=== PATIENT | male | born 1950 | race Caucasian/White ===

== ENCOUNTER → 2017-01-26 | Outpatient (CLI) | payer MEDICARE, BC ==
--- NOTE | 2017-01-26 12:15 | CT ---
EXAMINATION TYPE: CT abdomen pelvis w con DATE OF EXAM: 01/26/2017 11:35 AM COMPARISON: NONE HISTORY: 66-year-old male with left lower Leg swelling and pain TECHNIQUE: Contiguous axial scanning of the abdomen and pelvis following administration of 100 ml Omn ipaque 300 IV contrast. Delayed images through the kidneys and coronal/sagittal reconstructions perf ormed. CT DLP: 4218.8 mGycm Automated exposure control for dose reduction was used. FINDINGS: Heart is upper limits of normal in size without pericardial effusion. Some mild patchy dependent atel ectasis is present at the lung bases without pleural effusion. There are artifacts in the upper abdomen relating to the patient's arm down. The liver is enlarged at 20.8 cm craniocaudal. It may be some underlying fatty infiltration but this is difficult to accurately determine on this phase of imaging. Gallbladder, adrenal glands, spleen, pancreas show no gross abnormality. Subcentimeter hypodensities within both kidneys are too small thorax. CT characterization and likely represent cysts. There is symmetric uptake and excretion of contrast by both kidneys. Portal venous system appears patent. No biliary ductal dilatation. No dilated small bowel, free fluid, or free air. No mesenteric or retroperitoneal lymphadenopathy. There is scattered mild stool burden without pericolonic inflammatory change. Redundant sigmoid colon noted. Bladder is urine distended. Prostate gland mildly enlarged at 4.3 cm wide. Phleboliths in the pelvis There is a nodular area anterior to the distal sigmoid showing central fat density measuring 1.7 cm, axial image 75. No pelvic lymphadenopathy. There is a moderate to large left hydrocele and small right hydrocele partially visualized. Bones: Mild degenerative changes at the hips. Facet arthropathy lower lumbar spine. Endplate spondylo sis thoracolumbar junction. No osseous destructive process. IMPRESSION: 1. HEPATOMEGALY. THERE MAY BE UNDERLYING FATTY INFILTRATION. CORRELATE WITH LFT's, LIPID PROFILE, AND PATIENT RISK FACTORS. 2. NODULAR 1.7 CM AREA ALONG THE ANTERIOR DISTAL SIGMOID SHOW CENTRAL FAT DENSITY AND COULD REPRESENT A FOCUS OF EPIPLOIC APPENDAGITIS. CLINICALLY CORRELATE. 3. MODERATE TO LARGE LEFT SIDED SCROTAL HYDROCELE AND SMALL RIGHT HYDROCELE.
== END | disposition home or self-care (01) ==
LOC: RADCTMAIN 09:14
PROVIDERS: ATTEND Internal Medicine
DX: R16.0 Hepatomegaly, not elsewhere classified (principal); N13.30 Unspecified hydronephrosis; I10 Essential (primary) hypertension; Z86.59 Personal history of other mental and behavioral disorders
CPT/HCPCS: 74177; Q9967

== ENCOUNTER 2018-01-10 20:20 | Inpatient (IN) | payer MEDICARE, BC, OTHER ==
[2018-01-10] MEDS ORDERED: SODIUM CHLORIDE 0.9% 1,000 ML IV ONE (21:12)
[2018-01-10] MEDS ORDERED: ONDANSETRON 4 MG/2 ML VIAL IVP STA (21:12)
[2018-01-10 21:31] LABS: Basophils % (A) 0 %; Eosinophils # (A) 0.1 k/uL (0-0.7); Eosinophils % (A) 1 %; HGB 10.4 gm/dL (13.0-17.5); Lymphocytes # (A) 0.3 k/uL (1.0-4.8); Lymphocytes % (A) 4 %; MCH 32.6 pg (25.0-35.0); MCHC 35.7 g/dL (31.0-37.0); MCV 91.2 fL (80.0-100.0); Monocytes # (A) 0.5 k/uL (0-1.0); Monocytes % (A) 6 %; Neutrophils # (A) 7.2 k/uL (1.3-7.7); Neutrophils % (A) 88 %; Platelet Count 195 k/uL (150-450); RBC 3.18 m/uL (4.30-5.90); RDW 15.1 % (11.5-15.5); WBC 8.3 k/uL (3.8-10.6)
[2018-01-10 21:36] LABS: Appearance,Urine Clear (Clear); Bilirubin,Urine Negative (Negative); Blood,Urine Negative (Negative); Color,Urine Light Yellow; Glucose,Urine (UA) Negative (Negative); Ketones,Urine Negative (Negative); Leukocyte Esterase,Urine Negative (Negative); Nitrite,Urine Negative (Negative); PH, Urine 6.5 (5.0-8.0); Protein,Urine Negative (Negative); Specific Gravity,Urine 1.005 (1.001-1.035); Urobilinogen,Urine <2.0 mg/dL (<2.0)
[2018-01-10 21:47] LABS: ALT 30 U/L (21-72); AST 20 U/L (17-59); Albumin 4.4 g/dL (3.5-5.0); Alkaline Phosphatase 80 U/L (38-126); Amylase 47 U/L (30-110); Anion Gap 14 mmol/L; Blood Urea Nitrogen 26 mg/dL (9-20); Calcium 9.8 mg/dL (8.4-10.2); Carbon Dioxide 32 mmol/L (22-30); Glucose 147 mg/dL (74-99); Lipase 72 U/L (23-300); Potassium 4.1 mmol/L (3.5-5.1); Total Bilirubin 0.3 mg/dL (0.2-1.3); Total Protein 6.7 g/dL (6.3-8.2)
[2018-01-10 21:50] LABS: Chloride 71 mmol/L (98-107); Sodium 117 mmol/L (137-145)
--- NOTE | 2018-01-10 21:53 | XR ---
EXAMINATION TYPE: XR KUB DATE OF EXAM: 01/10/2018 COMPARISON: NONE HISTORY: Abdominal pain TECHNIQUE: 3 views FINDINGS: There is no sign of intestinal obstruction or pneumoperitoneum. Fecal pattern is normal. Merry ng bases appear clear. There are no pathologic calcifications over the kidneys. IMPRESSION: Nonacute abdomen.
--- NOTE | 2018-01-10 22:08 | ED ---
Nausea/Vomiting/Diarrhea HPI - General Chief complaint: Nausea/Vomiting/Diarrhea Stated complaint: URI Time Seen by Provider: 01/10/18 20:59 Source: patient Mode of arrival: EMS Limitations: no limitations - History of Present Illness Initial comments: 67-year-old male patient presents to the emergency department today for complaints of vomiting and lower back pain. Patient states that his back began to bother him approximately 3 days ago. States that all his pain is across the entire lower back. Denies any recent falls or injuries. He states today he was very queasy, states he has vomited 3 times. Denies any hematemesis. States that after the vomiting he became dizzy. Patient states that he has been more weak than usual is unable to ambulate. He states that he currently resides at [facility] after having a CVA approximately a year ago. Patient denies any chest pain, shortness of breath, abdominal pain, constipation , or diarrhea. Patient denies any recent fever, chills, numbness, tingling, dizziness, weakness, hematuria, dysuria, urinary urgency, urinary frequency, headache, visual changes, or any other complaints. - Related Data Home Medications Medication Instructions Recorded Confirmed Benztropine Mesylate 1 mg PO DAILY 12/15/15 01/10/18 Cyanocobalamin [Vitamin B-12] 500 mcg PO HS 12/15/15 01/10/18 Levothyroxine Sodium [Synthroid] 25 mcg PO DAILY 12/15/15 01/10/18 Lisinopril [Zestril] 20 mg PO BID 12/15/15 01/10/18 Multivitamin [Men's Multi-Vitamin] 1 tab PO HS 12/15/15 01/10/18 [place]-3 Fatty Acids/Fish Oil [Fish 1 cap PO HS 12/15/15 01/10/18 Oil 1,000 mg Softgel] carBAMazepine [TEGretol XR] 400 mg PO Q12HR 12/15/15 01/10/18 Acetaminophen Tab [Tylenol Tab] 650 mg PO Q4H PRN 01/10/18 01/10/18 Aspirin [Children's Aspirin] 81 mg PO HS 01/10/18 01/10/18 Atorvastatin [Lipitor] 20 mg PO HS 01/10/18 01/10/18 Benztropine Mesylate [Cogentin] 2 mg PO HS 01/10/18 01/10/18 Cholecalciferol [Vitamin D3] 1,000 unit PO DAILY 01/10/18 01/10/18 Fluocinonide 0.05% [Lidex 0.05% 1 applic TOPICAL DAILY 01/10/18 01/10/18 cream] Fluticasone Propionate [Flonase 2 spray EA NOSTRIL BID PRN 01/10/18 01/10/18 Allergy Relief] Furosemide [Lasix] 40 mg PO BID 01/10/18 01/10/18 L.acidoph,Paracasei, B.lactis 1 cap PO DAILY 01/10/18 01/10/18 [Probiotic] Lactulose 20 gm PO DAILY 01/10/18 01/10/18 Loratadine 10 mg PO DAILY PRN 01/10/18 01/10/18 Magnesium Hydroxide [Milk of 2,400 mg PO Q72H PRN 01/10/18 01/10/18 Magnesia] Melatonin 3 mg PO HS 01/10/18 01/10/18 Meloxicam [Mobic] 7.5 mg PO DAILY 01/10/18 01/10/18 Menthol [Biofreeze] 1 applic TOPICAL Q8H PRN 01/10/18 01/10/18 Metolazone [Zaroxolyn] 2.5 mg PO Q48H 01/10/18 01/10/18 Metoprolol Succinate (ER) [Toprol 50 mg PO DAILY 01/10/18 01/10/18 Xl] Polyethylene Glycol 3350 [Miralax] 17 gm PO HS 01/10/18 01/10/18 Potassium Chloride 8 meq PO BID 01/10/18 01/10/18 guaiFENesin-DM 100-10MG/5ML 10 ml PO Q6H PRN 01/10/18 01/10/18 [Robitussin DM] metFORMIN HCL [Glucophage] 500 mg PO BID 01/10/18 01/10/18 risperiDONE 2 mg PO BID 01/10/18 01/10/18 Previous Rx's Medication Instructions Recorded LORazepam [Ativan] 0.5 mg PO DAILY PRN #10 tab 12/19/15 Allergies Allergy/AdvReac Type Severity Reaction Status Date / Time chlorpromazine HCl Allergy Unknown Verified 01/10/18 20:38 [From Thorazine] Review of Systems ROS Statement: Those systems with pertinent positive or pertinent negative responses have been documented in the HPI. ROS Other: All systems not noted in ROS Statement are negative. Past Medical History Past Medical History: Hyperlipidemia, Hypertension, Seizure Disorder, Thyroid Disorder Additional Past Medical History / Comment(s): Obesity History of Any Multi-Drug Resistant Organisms: None Reported Past Surgical History: Appendectomy Past Anesthesia/Blood Transfusion Reactions: No Reported Reaction Past Psychological History: Schizophrenia Smoking Status: Former smoker Past Alcohol Use History: None Reported Past Drug Use History: Marijuana - Past Family History Mother Family Medical History: No Reported History Father Family Medical History: No Reported History General Exam Limitations: no limitations General appearance: alert, in no apparent distress, other (This is a well- developed, well-nourished adult male patient in no acute distress. Vital signs upon presentation are temperature 98.3F, pulse 64, respirations 18, blood pressure 146/65, pulse ox 98% on room air.) Eye exam: Present: normal appearance, PERRL, EOMI. Absent: scleral icterus, conjunctival injection, periorbital swelling ENT exam: Present: normal exam, normal oropharynx, mucous membranes moist Neck exam: Present: normal inspection. Absent: tenderness, meningismus, lymphadenopathy Respiratory exam: Present: normal lung sounds bilaterally. Absent: respiratory distress, wheezes, rales, rhonchi, stridor Cardiovascular Exam: Present: regular rate, normal rhythm, normal heart sounds. Absent: systolic murmur, diastolic murmur, rubs, gallop, clicks GI/Abdominal exam: Present: soft, normal bowel sounds. Absent: distended, tenderness, guarding, rebound, rigid Neurological exam: Present: alert, oriented X3, CN II-XII intact, other (Speech is slow) Psychiatric exam: Present: normal affect, normal mood Skin exam: Present: warm, dry, intact, normal color, rash (Generalized rash) Course Vital Signs 01/10/18 01/10/18 01/10/18 20:31 21:29 22:10 Temperature 98.3 F Pulse Rate 64 59 L 52 L Respiratory 18 18 20 Rate Blood Pressure 146/65 145/72 125/73 O2 Sat by Pulse 98 97 97 Oximetry Medical Decision Making - Medical Decision Making 67-year-old male patient presents to the emergency department today for evaluation of vomiting and low back pain. Physical examination is unremarkable. Abdomen is soft and nontender. Lower back is not tender. Labs reviewed and did reveal hemoglobin of 10.4, sodium 117, chloride 71, carbon dioxide 32, BUN 26, creatinine 1.3, glucose 147, and osmolality of 251. Urinalysis was negative. We will admit patient for sodium replacement. Repeat sodiums q6h. - Lab Data Result diagrams: 01/10/18 20:50 01/10/18 20:50 Lab Results 01/10/18 01/10/18 01/10/18 Range/Units 20:50 20:50 20:50 WBC 8.3 (3.8-10.6) k/uL RBC 3.18 L (4.30-5.90) m/uL Hgb 10.4 L (13.0-17.5) gm/dL Hct 29.0 L (39.0-53.0) % MCV 91.2 (80.0-100.0) fL MCH 32.6 (25.0-35.0) pg MCHC 35.7 (31.0-37.0) g/dL RDW 15.1 (11.5-15.5) % Plt Count 195 (150-450) k/uL Neutrophils % 88 % Lymphocytes % 4 % Monocytes % 6 % Eosinophils % 1 % Basophils % 0 % Neutrophils # 7.2 (1.3-7.7) k/uL Lymphocytes # 0.3 L (1.0-4.8) k/uL Monocytes # 0.5 (0-1.0) k/uL Eosinophils # 0.1 (0-0.7) k/uL Basophils # 0.0 (0-0.2) k/uL Sodium 117 L* (137-145) mmol/L Potassium 4.1 (3.5-5.1) mmol/L Chloride 71 L* (98-107) mmol/L Carbon Dioxide 32 H (22-30) mmol/L Anion Gap 14 mmol/L BUN 26 H (9-20) mg/dL Creatinine 1.30 H (0.66-1.25) mg/dL Est GFR (MDRD) Af Amer >60 (>60 ml/min/1.73 sqM) Est GFR (MDRD) Non-Af 55 (>60 ml/min/1.73 sqM) Glucose 147 H (74-99) mg/dL Osmolality (280-301) mosm/kg Calcium 9.8 (8.4-10.2) mg/dL Total Bilirubin 0.3 (0.2-1.3) mg/dL AST 20 (17-59) U/L ALT 30 (21-72) U/L Alkaline Phosphatase 80 (38-126) U/L Total Protein 6.7 (6.3-8.2) g/dL Albumin 4.4 (3.5-5.0) g/dL Amylase 47 (30-110) U/L Lipase 72 (23-300) U/L Urine Color Light Yellow Urine Appearance Clear (Clear) Urine pH 6.5 (5.0-8.0) Ur Specific [place] 1.005 (1.001-1.035) Urine Protein Negative (Negative) Urine Glucose (UA) Negative (Negative) Urine Ketones Negative (Negative) Urine Blood Negative (Negative) Urine Nitrite Negative (Negative) Urine Bilirubin Negative (Negative) Urine Urobilinogen <2.0 (<2.0) mg/dL Ur Leukocyte Esterase Negative (Negative) 01/10/18 Range/Units 20:50 WBC (3.8-10.6) k/uL RBC (4.30-5.90) m/uL Hgb (13.0-17.5) gm/dL Hct (39.0-53.0) % MCV (80.0-100.0) fL MCH (25.0-35.0) pg MCHC (31.0-37.0) g/dL RDW (11.5-15.5) % Plt Count (150-450) k/uL Neutrophils % % Lymphocytes % % Monocytes % % Eosinophils % % Basophils % % Neutrophils # (1.3-7.7) k/uL Lymphocytes # (1.0-4.8) k/uL Monocytes # (0-1.0) k/uL Eosinophils # (0-0.7) k/uL Basophils # (0-0.2) k/uL Sodium (137-145) mmol/L Potassium (3.5-5.1) mmol/L Chloride (98-107) mmol/L Carbon Dioxide (22-30) mmol/L Anion Gap mmol/L BUN (9-20) mg/dL Creatinine (0.66-1.25) mg/dL Est GFR (MDRD) Af Amer (>60 ml/min/1.73 sqM) Est GFR (MDRD) Non-Af (>60 ml/min/1.73 sqM) Glucose (74-99) mg/dL Osmolality 251 L (280-301) mosm/kg Calcium (8.4-10.2) mg/dL Total Bilirubin (0.2-1.3) mg/dL AST (17-59) U/L ALT (21-72) U/L Alkaline Phosphatase (38-126) U/L Total Protein (6.3-8.2) g/dL Albumin (3.5-5.0) g/dL Amylase (30-110) U/L Lipase (23-300) U/L Urine Color Urine Appearance (Clear) Urine pH (5.0-8.0) Ur Specific [place] (1.001-1.035) Urine Protein (Negative) Urine Glucose (UA) (Negative) Urine Ketones (Negative) Urine Blood (Negative) Urine Nitrite (Negative) Urine Bilirubin (Negative) Urine Urobilinogen (<2.0) mg/dL Ur Leukocyte Esterase (Negative) - Radiology Data Radiology results: report reviewed, image reviewed 3 views of the abdomen shows no sign of intestinal obstruction or pneumoperitoneum. Fecal pattern is normal. Lung bases appear clear. There are no pathologic calcifications over the kidneys. Impression by Dr. Berry shows nonacute abdomen. Disposition Clinical Impression: Hyponatremia, Acute kidney injury, Vomiting Disposition: ADMITTED IP TO THIS [facility] Condition: Serious Decision to Admit Reason: Admit from EC Decision Date: 01/10/18 Decision Time: 22:27
[2018-01-10] MEDS ORDERED: NALOXONE 0.4 MG/ML 1 ML VIAL IV PRN (22:20)
[2018-01-10] MEDS ORDERED: ONDANSETRON 4 MG/2 ML VIAL IVP PRN (22:20)
[2018-01-11] MEDS: HYDROcodone/APAP 5-325MG 1 EACH TAB PO PRN ×2 (00:16→09:54)
[2018-01-11] MEDS: SODIUM CHLORIDE 0.9% 1,000 ML IV SCH ×5 (00:19→21:11)
[2018-01-11 00:34] VITALS: BMI 43.3
[2018-01-11 07:09] LABS: Glucose,Whole Blood 123 mg/dL (75-99)
[2018-01-11 09:06] LABS: Anion Gap 14 mmol/L; Blood Urea Nitrogen 24 mg/dL (9-20); Calcium 9.7 mg/dL (8.4-10.2); Carbon Dioxide 31 mmol/L (22-30); Glucose 120 mg/dL (74-99); Potassium 3.5 mmol/L (3.5-5.1); Sodium 124 mmol/L (137-145)
[2018-01-11 09:17] LABS: Chloride 79 mmol/L (98-107)
[2018-01-11 09:22] LABS: Basophils % (A) 0 %; Eosinophils # (A) 0.2 k/uL (0-0.7); Eosinophils % (A) 3 %; HCT 30.2 % (39.0-53.0); HGB 10.5 gm/dL (13.0-17.5); Hyperchromasia Slight; Lymphocytes # (A) 0.6 k/uL (1.0-4.8); Lymphocytes % (A) 10 %; MCH 31.2 pg (25.0-35.0); MCHC 34.6 g/dL (31.0-37.0); MCV 90.1 fL (80.0-100.0); Mean Platelet Volume 6.9; Monocytes # (A) 0.5 k/uL (0-1.0); Monocytes % (A) 8 %; Neutrophils # (A) 4.4 k/uL (1.3-7.7); Neutrophils % (A) 75 %; Platelet Count 226 k/uL (150-450); RBC 3.35 m/uL (4.30-5.90); RDW 15.5 % (11.5-15.5)
[2018-01-11] MEDS ORDERED: FLUTICASONE 50MCG/SPRAY NASAL 16GM EA NOSTRIL PRN (16:13)
[2018-01-11] MEDS: ATORVASTATIN 20 MG TAB PO SCH (21:11)
[2018-01-11] MEDS: CYANOCOBALAMIN 500 MCG TAB PO SCH (21:11)
[2018-01-11] MEDS: ASPIRIN 81 MG PO SCH (21:11)
[2018-01-11] MEDS: MELATONIN 3 MG TABLET PO SCH (21:11)
--- NOTE | 2018-01-11 23:48 | P.HPIM ---
History of Present Illness H&P Date: 01/11/18 Chief Complaint: Nausea vomiting and diarrhea Patient is a 67-year-old male with a known history of hypertension, hyperlipidemia, hypothyroidism, CVA with no residual weakness and schizophrenia came to ER with complaints of nausea vomiting and lower back pain. Patient states that his back began to bother him approximately 3 days ago. States that all his pain is across the entire lower back. Denies any recent falls or injuries. He states today he was very queasy, states he has vomited 3 times. Denies any hematemesis. States that after the vomiting he became dizzy. Patient states that he has been more weak than usual is unable to ambulate. He states that he currently resides at [facility] after having a CVA approximately a year ago. Patient denies any chest pain, shortness of breath, abdominal pain, constipation, or diarrhea. Patient denies any recent fever, chills, numbness, tingling, dizziness, weakness, hematuria, dysuria, urinary urgency, urinary frequency, headache, visual changes, or any other complaints. Patient was found to have hyponatremia with sodium level 117 and hypochloremia and serum osmolarity 251 Review of Systems Constitutional: Patient denies any fever or chills . No generalized weakness or weight loss. Abdomen: Nausea vomiting and abdominal pain and diarrhea Cardiovascular: Patient denies any chest pain or short of breath no palpitations. Respiratory: patient denied any cough is from production. No shortness of breath Neurologic: Patient did have dizziness. Patient denied any numbness or tingling headache. Musculoskeletal: Patient denies any complaints of joint swelling or deformity. Skin: Negative Psychiatric: Negative Endocrine: No heat or cold intolerance. No recent weight gain. Genitourinary: No dysuria or hematuria. All other 14 point ROS negative except the above Past Medical History Past Medical History: Hyperlipidemia, Hypertension, Seizure Disorder, Thyroid Disorder Additional Past Medical History / Comment(s): Obesity History of Any Multi-Drug Resistant Organisms: None Reported Past Surgical History: Appendectomy Past Anesthesia/Blood Transfusion Reactions: No Reported Reaction Past Psychological History: Schizophrenia Smoking Status: Former smoker Past Alcohol Use History: None Reported Past Drug Use History: Marijuana - Past Family History Mother Family Medical History: No Reported History Father Family Medical History: No Reported History Medications and Allergies Home Medications Medication Instructions Recorded Confirmed Type Benztropine Mesylate 1 mg PO DAILY 12/15/15 01/10/18 History Cyanocobalamin [Vitamin B-12] 500 mcg PO HS 12/15/15 01/10/18 History Levothyroxine Sodium [Synthroid] 25 mcg PO DAILY 12/15/15 01/10/18 History Lisinopril [Zestril] 20 mg PO BID 12/15/15 01/10/18 History Multivitamin [Men's Multi-Vitamin] 1 tab PO HS 12/15/15 01/10/18 History [place]-3 Fatty Acids/Fish Oil [Fish 1 cap PO HS 12/15/15 01/10/18 History Oil 1,000 mg Softgel] carBAMazepine [TEGretol XR] 400 mg PO Q12HR 12/15/15 01/10/18 History LORazepam [Ativan] 0.5 mg PO DAILY PRN #10 tab 12/19/15 01/10/18 Rx Acetaminophen Tab [Tylenol Tab] 650 mg PO Q4H PRN 01/10/18 01/10/18 History Aspirin [Children's Aspirin] 81 mg PO HS 01/10/18 01/10/18 History Atorvastatin [Lipitor] 20 mg PO HS 01/10/18 01/10/18 History Benztropine Mesylate [Cogentin] 2 mg PO HS 01/10/18 01/10/18 History Cholecalciferol [Vitamin D3] 1,000 unit PO DAILY 01/10/18 01/10/18 History Fluocinonide 0.05% [Lidex 0.05% 1 applic TOPICAL DAILY 01/10/18 01/10/18 History cream] Fluticasone Propionate [Flonase 2 spray EA NOSTRIL BID PRN 01/10/18 01/10/18 History Allergy Relief] Furosemide [Lasix] 40 mg PO BID 01/10/18 01/10/18 History L.acidoph,Paracasei, B.lactis 1 cap PO DAILY 01/10/18 01/10/18 History [Probiotic] Lactulose 20 gm PO DAILY 01/10/18 01/10/18 History Loratadine 10 mg PO DAILY PRN 01/10/18 01/10/18 History Magnesium Hydroxide [Milk of 2,400 mg PO Q72H PRN 01/10/18 01/10/18 History Magnesia] Melatonin 3 mg PO HS 01/10/18 01/10/18 History Meloxicam [Mobic] 7.5 mg PO DAILY 01/10/18 01/10/18 History Menthol [Biofreeze] 1 applic TOPICAL Q8H PRN 01/10/18 01/10/18 History Metolazone [Zaroxolyn] 2.5 mg PO Q48H 01/10/18 01/10/18 History Metoprolol Succinate (ER) [Toprol 50 mg PO DAILY 01/10/18 01/10/18 History Xl] Polyethylene Glycol 3350 [Miralax] 17 gm PO HS 01/10/18 01/10/18 History Potassium Chloride 8 meq PO BID 01/10/18 01/10/18 History guaiFENesin-DM 100-10MG/5ML 10 ml PO Q6H PRN 01/10/18 01/10/18 History [Robitussin DM] metFORMIN HCL [Glucophage] 500 mg PO BID 01/10/18 01/10/18 History risperiDONE 2 mg PO BID 01/10/18 01/10/18 History Allergies Allergy/AdvReac Type Severity Reaction Status Date / Time chlorpromazine HCl Allergy Unknown Verified 01/10/18 20:38 [From Thorazine] Physical Exam Vitals: Vital Signs Temp Pulse Pulse Pulse Resp BP BP 01/11/18 08:41 99.4 F 74 14 103/66 01/11/18 08:00 74 14 01/11/18 02:09 61 17 01/11/18 00:35 96.7 F L 61 17 127/71 01/10/18 22:10 52 L 20 125/73 01/10/18 21:29 59 L 18 145/72 01/10/18 20:31 98.3 F 64 18 146/65 Pulse Ox 01/11/18 08:41 93 L 01/11/18 08:00 01/11/18 02:09 01/11/18 00:35 98 01/10/18 22:10 97 01/10/18 21:29 97 01/10/18 20:31 98 Intake and Output 01/10/18 01/11/18 01/11/18 22:59 06:59 14:59 Intake Total 625 Output Total 1200 810 Balance -575 -810 Intake: Intake, IV Titration 625 Amount Sodium Chloride 0.9% 1, 625 000 ml @ 125 mls/hr IV . Q8H [facility] Rx#:[id number] Output: Urine 1200 810 Other: Voiding Method Urinal Urinal # Voids 1 Weight 79.832 kg 125.45 kg PHYSICAL EXAMINATION: Patient is lying in the bed comfortably, no acute distress, awake alert and oriented. Slightly lethargic. HEENT: Normocephalic. Neck is supple. Pupils reactive. Nostrils clear. Oral cavity is moist. Ears reveal no drainage. Neck reveals no JVD, carotid bruits, or thyromegaly. CHEST EXAMINATION: Trachea is central. Symmetrical expansion. Lung de dios clear to auscultation and percussion. CARDIAC: Normal S1, S2 with no gallops. No murmurs ABDOMEN: Soft. Bowel sounds normal. No organomegaly. No abdominal bruits. Extremities: reveal no edema. No clubbing or cyanosis Neurologically awake, alert, oriented x3 with well-coordinated movements. No focal deficits noted Skin: No rash or skin lesions. Psychiatric: Coperative. Nonsuicidal Musculoskeletal: No joint swelling or deformity. Normal range of motion. Results CBC & Chem 7: 01/11/18 08:24 01/11/18 20:10 Labs: Abnormal Lab Results - Last 24 Hours (Table) 01/10/18 01/10/18 01/10/18 Range/Units 20:50 20:50 20:50 RBC 3.18 L (4.30-5.90) m/uL Hgb 10.4 L (13.0-17.5) gm/dL Hct 29.0 L (39.0-53.0) % Lymphocytes # 0.3 L (1.0-4.8) k/uL Sodium 117 L* (137-145) mmol/L Chloride 71 L* (98-107) mmol/L Carbon Dioxide 32 H (22-30) mmol/L BUN 26 H (9-20) mg/dL Creatinine 1.30 H (0.66-1.25) mg/dL Glucose 147 H (74-99) mg/dL POC Glucose (mg/dL) (75-99) mg/dL Osmolality 251 L (280-301) mosm/kg 01/11/18 01/11/18 01/11/18 Range/Units 07:08 08:24 08:24 RBC 3.35 L (4.30-5.90) m/uL Hgb 10.5 L (13.0-17.5) gm/dL Hct 30.2 L (39.0-53.0) % Lymphocytes # 0.6 L (1.0-4.8) k/uL Sodium 124 L (137-145) mmol/L Chloride 79 L* (98-107) mmol/L Carbon Dioxide 31 H (22-30) mmol/L BUN 24 H (9-20) mg/dL Creatinine (0.66-1.25) mg/dL Glucose 120 H (74-99) mg/dL POC Glucose (mg/dL) 123 H (75-99) mg/dL Osmolality (280-301) mosm/kg Thrombosis Risk Factor Assmnt - DVT/VTE Prophylaxis DVT/VTE Prophylaxis: Pharmacologic Prophylaxis ordered - Choose All That Apply Each Factor Represents 1 point: Obesity (BMI >25), Swollen legs (current) Each Risk Factor Represents 2 Points: Age 61-74 years Thrombosis Risk Factor Assessment Total Risk Factor Score: 4 Thrombosis Risk Factor Assessment Level: Moderate Risk Assessment and Plan Assessment: Hypoosmolar hyponatremia likely due to hypovolemic Due to nausea vomiting and diarrhea along with diuretics Lasix Hypothyroidism Schizophrenia Morbid obesity BMI 43.3 Hyperlipidemia Hypertension Diabetes type II. [id number] Chronic pain Plan: Patient be continued on IV fluids with normal saline. Sodium improved from 117- -125 today. Patient is also taking antipsychotic medications. Suspected underlying SIADH as well. We will consult nephrology for evaluation. Further recommendations based on the clinical course. Time with Patient: Greater than 30
[2018-01-12] MEDS: SODIUM CHLORIDE 0.9% 1,000 ML IV SCH ×2 (02:48→12:28)
[2018-01-12] MEDS: LEVOTHYROXINE 25 MCG TAB PO SCH (06:20)
[2018-01-12 08:10] LABS: Basophils % (A) 0 %; Eosinophils # (A) 0.2 k/uL (0-0.7); Eosinophils % (A) 4 %; HCT 30.6 % (39.0-53.0); HGB 10.6 gm/dL (13.0-17.5); Lymphocytes # (A) 0.6 k/uL (1.0-4.8); Lymphocytes % (A) 12 %; MCH 31.8 pg (25.0-35.0); MCHC 34.7 g/dL (31.0-37.0); MCV 91.7 fL (80.0-100.0); Mean Platelet Volume 6.8; Monocytes # (A) 0.4 k/uL (0-1.0); Monocytes % (A) 8 %; Neutrophils # (A) 3.5 k/uL (1.3-7.7); Neutrophils % (A) 71 %; Platelet Count 208 k/uL (150-450); RBC 3.33 m/uL (4.30-5.90); RDW 15.1 % (11.5-15.5); WBC 4.9 k/uL (3.8-10.6)
[2018-01-12 08:41] LABS: Anion Gap 13 mmol/L; Blood Urea Nitrogen 17 mg/dL (9-20); Calcium 9.3 mg/dL (8.4-10.2); Carbon Dioxide 29 mmol/L (22-30); Chloride 88 mmol/L (98-107); Glucose 108 mg/dL (74-99); Potassium 3.8 mmol/L (3.5-5.1); Sodium 130 mmol/L (137-145)
[2018-01-12] MEDS: HYDROcodone/APAP 5-325MG 1 EACH TAB PO PRN (08:56)
[2018-01-12] MEDS: HEPARIN SODIUM,PORCINE 5,000 UNIT/ML 1 ML VIAL SQ SCH ×2 (09:08→21:36)
[2018-01-12] MEDS: BETAMETHASONE DIPROPIONATE 0.05% CREAM 15 GM TUBE TOPICAL SCH (09:10)
--- NOTE | 2018-01-12 09:44 | XR ---
EXAMINATION TYPE: XR chest 1V DATE OF EXAM: 01/12/2018 COMPARISON: Prior chest x-ray 12/15/2015 HISTORY: Shortness of breath TECHNIQUE: Single frontal view of the chest is obtained. FINDINGS: Patient is rotated. Heart size is accentuated by rotation. Hilar region may appear promine ntly due to technique. No airspace disease, pneumothorax, or pleural effusion. IMPRESSION: Rotated exam. Follow-up PA and lateral chest x-ray suggested. No acute abnormalities julia dent. Borderline enlarged cardiac size suspected.
--- NOTE | 2018-01-12 17:08 | CONS ---
CONSULTATION DATE OF CONSULTATION: 01/12/2018 REASON FOR CONSULTATION: Hyponatremia. HISTORY OF PRESENT ILLNESS: The patient is a 67-year-old male who was admitted to the hospital on 01/10/2018 with complaints of weakness, not feeling well. He also had nausea, vomiting and diarrhea prior to admission. He currently resides at [facility]. Patient's sodium was noted to be 117 mEq/L on initial admission. He has been maintained on normal saline at 100 mL/hour and serum sodium this morning was 130 mEq/L. The patient is complaining of increased lower extremity edema. He denies any further nausea, vomiting or diarrhea. Serum creatinine was 0.9 mg/dL. Initial creatinine was 1.3. PAST MEDICAL HISTORY: 1. Hypertension. 2. Hyperlipidemia. 3. Seizure disorder. 4. Hypothyroidism. 5. Obesity. 6. Schizophrenia. PAST SURGICAL HISTORY: Appendicectomy. SOCIAL HISTORY: The patient is a former smoker. No history of drug abuse or alcohol abuse. MEDICATIONS AT HOME PRIOR TO ADMISSION: 1. Vitamin B12. 2. Synthroid. 3. Zestril. 4. Tegretol. 5. Ativan. 6. Lipitor. 7. Aspirin. 8. Cogentin. 9. Flonase. 10.Lasix. 11.Lactulose. 12.Mobic. 13.Zaroxolyn. 14.Metformin. 15.Risperidone. 16.Potassium. 17.MiraLAX. ALLERGIES: THORAZINE. REVIEW OF SYSTEMS: As per HPI. Other systems negative. No complaints of any urinary symptoms or abdominal pain, chest pain, shortness of breath. No new medication started recently. PHYSICAL EXAMINATION: Patient is comfortable, awake, alert, oriented x3, not in any acute distress. Blood pressure is 110/60, heart rate 56 per minute. He is afebrile. EXAMINATION OF THE HEART: S1, S2. EXAMINATION OF LUNGS: Bilateral breath sounds are heard. ABDOMEN: Soft, obese, non-tender. Examination of lower extremities shows edema 1+ bilaterally. LABS: Sodium 130, potassium 3.8, chloride 88, BUN 17, serum creatinine 0.9, hemoglobin 10.6 g/dL. ASSESSMENT: 1. Acute kidney injury, prerenal, currently improved with creatinine down to 0.9 from 1.3 mg/dL. 2. Hyponatremia; appears to be hypovolemic and improved with normal saline. However, at this time I will discontinue the saline and repeat his serum sodium level this evening. I have advised him that we should keep him off of the saline for at least 24 hours and monitor his serum sodium level prior to discharge. Urine osmolarity and urine sodium will be ordered as well. Blood pressure is slightly on the lower side; therefore serum cortisol will be checked as well. 3. Hypertension; blood pressure currently on the lower side. Continue off of JAIDEN inhibitors. 4. Dyslipidemia, maintained on Lipitor. 5. Hypothyroidism. TSH was within range. PLAN: Discontinue normal saline. Check urine osmolality and urine sodium and repeat sodium this evening as well as in a.m. Thank you for this consultation. We will continue to follow the patient with you during his hospitalization. MMELSIEL / IJN: [id number] /
[2018-01-12] MEDS: ASPIRIN 81 MG PO SCH (21:36)
[2018-01-12] MEDS: ATORVASTATIN 20 MG TAB PO SCH (21:36)
[2018-01-12] MEDS: MELATONIN 3 MG TABLET PO SCH (21:36)
[2018-01-12] MEDS: CYANOCOBALAMIN 500 MCG TAB PO SCH (21:36)
[2018-01-13] MEDS: LEVOTHYROXINE 25 MCG TAB PO SCH (06:26)
[2018-01-13] MEDS: HEPARIN SODIUM,PORCINE 5,000 UNIT/ML 1 ML VIAL SQ SCH ×2 (09:28→20:33)
[2018-01-13] MEDS: BETAMETHASONE DIPROPIONATE 0.05% CREAM 15 GM TUBE TOPICAL SCH (09:30)
[2018-01-13] MEDS ORDERED: LISINOPRIL 10 MG TAB PO SCH (14:30)
[2018-01-13 14:59] LABS: Anion Gap 12 mmol/L; Blood Urea Nitrogen 10 mg/dL (9-20); Calcium 9.5 mg/dL (8.4-10.2); Carbon Dioxide 29 mmol/L (22-30); Chloride 90 mmol/L (98-107); Glucose 119 mg/dL (74-99); Potassium 4.2 mmol/L (3.5-5.1); Sodium 131 mmol/L (137-145)
--- NOTE | 2018-01-13 15:09 | PN ---
PROGRESS NOTE Patient is seen for followup for hyponatremia. Sodium has improved, which is at 132, Patient wants to go home. PHYSICAL EXAMINATION: Blood pressure is 158/62, heart rate 61 per minute. Patient is afebrile. Examination of the heart, S1, S2. Examination of the lungs, bilateral breath sounds are heard. Abdomen is soft, nontender. Examination of the lower extremities shows edema 1+ bilaterally. LABS: Show sodium 132 today. Serum creatinine was 0.94 yesterday. ASSESSMENT: 1. Hypovolemic, hyponatremia initially, currently improved. The patient also has lower extremity edema and therefore he is maintained off of normal saline now. He may need low-dose loop diuretics as outpatient depending on his serum sodium level. This will need to be monitored as outpatient. 2. Acute kidney injury with serum creatinine improving from 1.3 to 0.9 mg/dL, mainly prerenal. 3. Hypertension. Blood pressure remains on the low side. Continue off of JAIDEN inhibitors. 4. Hypothyroidism, maintained on supplementation. 5. Dyslipidemia, currently on Lipitor. PLAN: Continue off of normal saline to maintain some degree of free water restriction, maintained good oral protein intake and monitor electrolytes as outpatient. Patient is stable for discharge from a nephrology standpoint, we should avoid thiazide diuretics and if blood pressure is elevated as outpatient, patient can resume the JAIDEN inhibitors. CROWL / TERESAN: [id number] /
[2018-01-13] MEDS: LISINOPRIL 10 MG TAB PO SCH (20:33)
[2018-01-13] MEDS: ATORVASTATIN 20 MG TAB PO SCH (20:33)
[2018-01-13] MEDS: MELATONIN 3 MG TABLET PO SCH (20:34)
[2018-01-13] MEDS: CYANOCOBALAMIN 500 MCG TAB PO SCH (20:34)
[2018-01-13] MEDS: ASPIRIN 81 MG PO SCH (20:34)
[2018-01-14] MEDS: LEVOTHYROXINE 25 MCG TAB PO SCH (06:11)
[2018-01-14] MEDS: HEPARIN SODIUM,PORCINE 5,000 UNIT/ML 1 ML VIAL SQ SCH ×2 (09:30→21:46)
[2018-01-14] MEDS: LISINOPRIL 10 MG TAB PO SCH (09:31)
[2018-01-14] MEDS: BETAMETHASONE DIPROPIONATE 0.05% CREAM 15 GM TUBE TOPICAL SCH (09:31)
[2018-01-14] MEDS ORDERED: LORazepam 0.5 MG TAB PO PRN (10:50)
[2018-01-14] MEDS: BENZTROPINE MESYLATE 1 MG TAB PO SCH ×2 (12:11→21:46)
[2018-01-14] MEDS: carBAMazepine 400 MG TAB.ER.12H PO SCH ×2 (12:11→21:46)
[2018-01-14] MEDS: risperiDONE 2 MG TAB PO SCH ×2 (12:11→21:46)
[2018-01-14] MEDS: LACTULOSE 20 GM/30 ML CUP PO SCH (12:13)
--- NOTE | 2018-01-14 15:55 | PN ---
PROGRESS NOTE The patient is seen for followup for hyponatremia, which was hypovolemic initially, currently improved. Patient this morning is confused. He has significant lower extremity edema for which I will start him on oral diuretics. There is no ongoing fever or chills. Blood pressure is 132/81, heart rate is 72 per minute. He is afebrile. Examination of the heart S1, S2. Examination lungs bilateral breath sounds are heard. Abdomen is soft, distended, obese. Examination of the lower extremity shows edema 2+ bilaterally. LABS: Reveals sodium 131 today, potassium 4.2, BUN 10, serum creatinine 0.8 mg/dL. Urine osmolality 245. Urine sodium of 37. ASSESSMENT: 1. Hyponatremia, hypovolemic initially and responded well to IV fluids. Currently patient is off of saline. His sodium is staying about 130-131 mEq/L. He does have significant lower extremity edema. I will start him on low-dose loop diuretics. 2. Acute kidney injury prerenal currently improved. 3. Hypertension. JAIDEN inhibitors were decreased as blood pressure had been on the lower side. 4. Hypothyroidism. 5. Dyslipidemia. 6. Encephalopathy with altered mental status, possibly related to medications. The patient is on multiple psych medications. PLAN: Add Lasix 40 mg p.o. daily. Repeat labs in a.m. MMODL / IJN: [id number] /
[2018-01-14] MEDS: FUROSEMIDE 40 MG TAB PO SCH (16:05)
[2018-01-14] MEDS: ATORVASTATIN 20 MG TAB PO SCH (21:45)
[2018-01-14] MEDS: MELATONIN 3 MG TABLET PO SCH (21:45)
[2018-01-14] MEDS: ASPIRIN 81 MG PO SCH (21:45)
[2018-01-14] MEDS: CYANOCOBALAMIN 500 MCG TAB PO SCH (21:45)
[2018-01-14] MEDS: LISINOPRIL 20 MG TAB PO SCH (21:46)
--- NOTE | 2018-01-15 00:18 | P.PN ---
Subjective Progress Note Date: 01/12/18 Principal diagnosis: Hyponatremia and altered mental status Patient is a 67-year-old male with a known history of hypertension, hyperlipidemia, hypothyroidism, CVA with no residual weakness and schizophrenia came to ER with complaints of nausea vomiting and lower back pain. Patient states that his back began to bother him approximately 3 days ago. States that all his pain is across the entire lower back. Denies any recent falls or injuries. He states today he was very queasy, states he has vomited 3 times. Denies any hematemesis. States that after the vomiting he became dizzy. Patient states that he has been more weak than usual is unable to ambulate. He states that he currently resides at [facility] after having a CVA approximately a year ago. Patient denies any chest pain, shortness of breath, abdominal pain, constipation, or diarrhea. Patient denies any recent fever, chills, numbness, tingling, dizziness, weakness, hematuria, dysuria, urinary urgency, urinary frequency, headache, visual changes, or any other complaints. Patient was found to have hyponatremia with sodium level 117 and hypochloremia and serum osmolarity 251 01/12/2018 Patient's sodium level improved to 130 today. Patient was seen by nephrology and recommended to hold IV fluids to evaluate for SIADH. Otherwise patient is awake oriented and clinically improved. No fever no chills no acute overnight issues. All other review of systems negative except the above Current medications reviewed Objective - Vital Signs Vital signs: Vital Signs Temp 97.7 F 01/12/18 15:00 Pulse 60 01/12/18 15:00 Resp 16 01/12/18 15:00 BP 137/75 01/12/18 15:00 Pulse Ox 95 01/12/18 15:00 Intake & Output 01/12/18 01/12/18 01/13/18 06:59 18:59 06:59 Intake Total 900 800 Output Total 1400 500 Balance -500 300 Intake: IV 900 800 Sodium Chloride 0.9% 1, 900 800 000 ml @ 100 mls/hr IV . Q10H NISHI Rx#:[id number] Output: Urine 1400 500 Other: Voiding Method Urinal Bedside Commode Urinal # Voids 400 # Bowel Movements 1 - Exam PHYSICAL EXAMINATION: Patient is lying in the bed comfortably, no acute distress, awake alert and oriented. Sometimes patient talks to himself.. HEENT: Normocephalic. Neck is supple. Pupils reactive. Nostrils clear. Oral cavity is moist. Ears reveal no drainage. Neck reveals no JVD, carotid bruits, or thyromegaly. CHEST EXAMINATION: Trachea is central. Symmetrical expansion. Lung de dios clear to auscultation and percussion. CARDIAC: Normal S1, S2 with no gallops. No murmurs ABDOMEN: Soft. Bowel sounds normal. No organomegaly. No abdominal bruits. Extremities: reveal no edema. No clubbing or cyanosis Neurologically awake, alert, oriented x3 with well-coordinated movements. No focal deficits noted Skin: No rash or skin lesions. Psychiatric: Coperative. Nonsuicidal Musculoskeletal: No joint swelling or deformity. Normal range of motion. - Labs CBC & Chem 7: 01/12/18 07:29 01/13/18 14:23 Labs: Abnormal Lab Results - Last 24 Hours (Table) 01/11/18 01/12/18 01/12/18 Range/Units 23:06 07:29 07:29 RBC 3.33 L (4.30-5.90) m/uL Hgb 10.6 L (13.0-17.5) gm/dL Hct 30.6 L (39.0-53.0) % Lymphocytes # 0.6 L (1.0-4.8) k/uL Sodium 125 L 130 L (137-145) mmol/L Chloride 88 L (98-107) mmol/L Glucose 108 H (74-99) mg/dL 01/12/18 Range/Units 18:45 RBC (4.30-5.90) m/uL Hgb (13.0-17.5) gm/dL Hct (39.0-53.0) % Lymphocytes # (1.0-4.8) k/uL Sodium 132 L (137-145) mmol/L Chloride (98-107) mmol/L Glucose (74-99) mg/dL Assessment and Plan Assessment: Hypoosmolar hyponatremia likely due to hypovolemic Due to nausea vomiting and diarrhea along with diuretics Lasix Hypothyroidism Schizophrenia Morbid obesity BMI 43.3 Hyperlipidemia Hypertension Diabetes type II. [id number] Chronic pain Plan: Patient be continued on IV fluids with normal saline. Sodium improved from 117- -125 --130 today. Patient is also taking antipsychotic medications. Suspected underlying SIADH as well. We will consult nephrology for evaluation. Further recommendations based on the clinical course.
--- NOTE | 2018-01-15 00:22 | P.PN ---
Subjective Progress Note Date: 01/13/18 Principal diagnosis: Hyponatremia and altered mental status Patient is a 67-year-old male with a known history of hypertension, hyperlipidemia, hypothyroidism, CVA with no residual weakness and schizophrenia came to ER with complaints of nausea vomiting and lower back pain. Patient states that his back began to bother him approximately 3 days ago. States that all his pain is across the entire lower back. Denies any recent falls or injuries. He states today he was very queasy, states he has vomited 3 times. Denies any hematemesis. States that after the vomiting he became dizzy. Patient states that he has been more weak than usual is unable to ambulate. He states that he currently resides at [facility] after having a CVA approximately a year ago. Patient denies any chest pain, shortness of breath, abdominal pain, constipation, or diarrhea. Patient denies any recent fever, chills, numbness, tingling, dizziness, weakness, hematuria, dysuria, urinary urgency, urinary frequency, headache, visual changes, or any other complaints. Patient was found to have hyponatremia with sodium level 117 and hypochloremia and serum osmolarity 251 01/12/2018 Patient's sodium level improved to 130 today. Patient was seen by nephrology and recommended to hold IV fluids to evaluate for SIADH. Otherwise patient is awake oriented and clinically improved. No fever no chills no acute overnight issues. 01/13/2018 Sodium level improved to 132 today. Patient continues to be off IV fluids. Recommended good protein diet as outpatient and follow-up as an outpatient as per nephrology recommendations. He anticipate discharged tomorrow with more clinical improvement All other review of systems negative except the above Current medications reviewed Objective - Vital Signs Vital signs: Vital Signs Temp 98.2 F 01/13/18 15:00 Pulse 59 L 01/13/18 15:00 Resp 18 01/13/18 15:00 BP 157/70 01/13/18 15:00 Pulse Ox 97 01/13/18 15:00 Intake & Output 01/12/18 01/13/18 01/13/18 18:59 06:59 18:59 Intake Total 800 750 Output Total 500 1100 Balance 300 -350 Intake: IV 800 Sodium Chloride 0.9% 1, 800 000 ml @ 100 mls/hr IV . Q10H [facility] Rx#:[id number] Oral 750 Output: Urine 500 1100 Other: Voiding Method Bedside Commode Bedside Commode Urinal Urinal # Voids 1 # Bowel Movements 1 - Exam PHYSICAL EXAMINATION: Patient is lying in the bed comfortably, no acute distress, awake alert and oriented. Sometimes patient talks to himself.. HEENT: Normocephalic. Neck is supple. Pupils reactive. Nostrils clear. Oral cavity is moist. Ears reveal no drainage. Neck reveals no JVD, carotid bruits, or thyromegaly. CHEST EXAMINATION: Trachea is central. Symmetrical expansion. Lung de dios clear to auscultation and percussion. CARDIAC: Normal S1, S2 with no gallops. No murmurs ABDOMEN: Soft. Bowel sounds normal. No organomegaly. No abdominal bruits. Extremities: reveal no edema. No clubbing or cyanosis Neurologically awake, alert, oriented x3 with well-coordinated movements. No focal deficits noted Skin: No rash or skin lesions. Psychiatric: Coperative. Nonsuicidal Musculoskeletal: No joint swelling or deformity. Normal range of motion. - Labs CBC & Chem 7: 01/12/18 07:29 01/13/18 14:23 Labs: Abnormal Lab Results - Last 24 Hours (Table) 01/12/18 01/13/18 Range/Units 18:45 14:23 Sodium 132 L 131 L (137-145) mmol/L Chloride 90 L (98-107) mmol/L Glucose 119 H (74-99) mg/dL Assessment and Plan Assessment: Hypoosmolar hyponatremia likely due to hypovolemic Due to nausea vomiting and diarrhea along with diuretics Lasix Hypothyroidism Schizophrenia Morbid obesity BMI 43.3 Hyperlipidemia Hypertension Diabetes type II. [id number] Chronic pain Plan: Patient is off IV fluids. Sodium improved from 117--125 --130--132 today. Patient is also taking antipsychotic medications. Appreciate nephrology recommendations. Recommended to follow-up as an outpatient at this time. Further recommendations based on the clinical course.
--- NOTE | 2018-01-15 00:26 | P.PN ---
Subjective Progress Note Date: 01/14/18 Principal diagnosis: Hyponatremia and altered mental status Patient is a 67-year-old male with a known history of hypertension, hyperlipidemia, hypothyroidism, CVA with no residual weakness and schizophrenia came to ER with complaints of nausea vomiting and lower back pain. Patient states that his back began to bother him approximately 3 days ago. States that all his pain is across the entire lower back. Denies any recent falls or injuries. He states today he was very queasy, states he has vomited 3 times. Denies any hematemesis. States that after the vomiting he became dizzy. Patient states that he has been more weak than usual is unable to ambulate. He states that he currently resides at [facility] after having a CVA approximately a year ago. Patient denies any chest pain, shortness of breath, abdominal pain, constipation, or diarrhea. Patient denies any recent fever, chills, numbness, tingling, dizziness, weakness, hematuria, dysuria, urinary urgency, urinary frequency, headache, visual changes, or any other complaints. Patient was found to have hyponatremia with sodium level 117 and hypochloremia and serum osmolarity 251 01/12/2018 Patient's sodium level improved to 130 today. Patient was seen by nephrology and recommended to hold IV fluids to evaluate for SIADH. Otherwise patient is awake oriented and clinically improved. No fever no chills no acute overnight issues. 01/13/2018 Sodium level improved to 132 today. Patient continues to be off IV fluids. Recommended good protein diet as outpatient and follow-up as an outpatient as per nephrology recommendations. He anticipate discharged tomorrow with more clinical improvement. 01/14/2018 Patient is confused and hallucinating today. Patient is also having worsening lower action to swelling. Lasix was restarted. Patient will be restarted on his psychiatric medications as well. Otherwise no fever no chills. We will repeat CBC and BMP tomorrow. Nephrology is on board. Complete review of systems could not be obtained from the patient Current medications reviewed Objective - Vital Signs Vital signs: Vital Signs Temp 97.7 F 01/14/18 15:00 Pulse 73 01/14/18 16:00 Resp 16 01/14/18 16:00 BP 144/85 01/14/18 15:00 Pulse Ox 97 01/14/18 15:00 Intake & Output 01/14/18 01/14/18 01/15/18 06:59 18:59 06:59 Intake Total 800 Output Total 150 Balance -150 800 Intake: Oral 800 Output: Urine 150 Other: Voiding Method Bedside Commode Bedside Commode Urinal Urinal # Voids 1 - Exam PHYSICAL EXAMINATION: Patient is lying in the bed comfortably, no acute distress, awake alert and oriented. Sometimes patient talks to himself.. HEENT: Normocephalic. Neck is supple. Pupils reactive. Nostrils clear. Oral cavity is moist. Ears reveal no drainage. Neck reveals no JVD, carotid bruits, or thyromegaly. CHEST EXAMINATION: Trachea is central. Symmetrical expansion. Lung de dios clear to auscultation and percussion. CARDIAC: Normal S1, S2 with no gallops. No murmurs ABDOMEN: Soft. Bowel sounds normal. No organomegaly. No abdominal bruits. Extremities: reveal no edema. No clubbing or cyanosis Neurologically awake, alert, oriented x3 with well-coordinated movements. No focal deficits noted Skin: No rash or skin lesions. Psychiatric: Coperative. Nonsuicidal Musculoskeletal: No joint swelling or deformity. Normal range of motion. - Labs CBC & Chem 7: 01/12/18 07:29 01/13/18 14:23 Assessment and Plan Assessment: Hypoosmolar hyponatremia likely due to hypovolemic Due to nausea vomiting and diarrhea along with diuretics Lasix Hallucinations Hypothyroidism Schizophrenia Morbid obesity BMI 43.3 Hyperlipidemia Hypertension Diabetes type II. [id number] Chronic pain Lower extremity swelling. Bilateral. Likely due to dependent edema. No history of CHF. Restarted Lasix Plan: Patient is off IV fluids. Sodium improved from 117--125 --130--132. Patient has been restarted on antipsychotic medications. Appreciate nephrology recommendations. Recommended to follow-up as an outpatient at this time. Further recommendations based on the clinical course. Time with Patient: Greater than 30
[2018-01-15 04:28] LABS: Glucose,Whole Blood 133 mg/dL (75-99)
--- NOTE | 2018-01-15 04:55 | CT ---
EXAM: CT Head Without Intravenous Contrast CLINICAL HISTORY: ITS.REASON CT Reason: Stroke TECHNIQUE: Axial computed tomography images of the head/brain without intravenous contrast. CTDI is 57.4 mGy and DLP is 1184.9 mGy-cm. This CT exam was performed using one or more of the following dose reduction techniques: automated exposure control, adjustment of the mA and/or kV according to patient size, and/or use of iterative reconstruction technique. COMPARISON: CT head dated 12/16/2015. FINDINGS: Brain: Unchanged small chronic lacunar infarcts in the deep weller nuclei as well as mild patchy foci of low attenuation in the supratentorial white matter most compatible with small vessel ischemic disease. No evidence of acute intracranial hemorrhage. No mass effect or herniation. Ventricles: Unremarkable. No ventriculomegaly. Bones/joints: No acute fracture. Soft tissues: Unremarkable. Sinuses: Unremarkable as visualized. Mastoid air cells: Unremarkable as visualized. Other findings: Unchanged mild global volume loss. IMPRESSION: No evidence of acute intracranial hemorrhage. Unchanged mild presumed small vessel ischemic disease and multiple small chronic appearing lacunar infarcts.
--- NOTE | 2018-01-15 05:17 | CT ---
EXAM: CT Angiography Head With Intravenous Contrast CLINICAL HISTORY: ITS.REASON CT Reason: CODE STROKE TECHNIQUE: Axial computed tomographic angiography images of the head with intravenous contrast using CT angiography protocol. DLP is 1021.2 mGy-cm total for head and neck. This CT exam was performed using one or more of the following dose reduction techniques: automated exposure control, adjustment of the mA and/or kV according to patient size, and/or use of iterative reconstruction technique. MIP reconstructed images were created and reviewed. COMPARISON: None available. FINDINGS: Limitations: Markedly limited exam secondary to poor bolus timing. Right internal carotid artery: No acute findings. No occlusion or significant stenosis. No aneurysm. Right anterior cerebral artery: Grossly unremarkable. No proximal occlusion or significant stenosis. No large proximal aneurysm. Right middle cerebral artery: Gross unremarkable. No proximal occlusion or significant stenosis. No large proximal aneurysm. Right posterior cerebral artery: Grossly unremarkable. No proximal occlusion or significant stenosis. No large proximal aneurysm. Right vertebral artery: Unremarkable as visualized. Left internal carotid artery: No acute findings. Intracranial segment is patent with no significant stenosis. No aneurysm. Left anterior cerebral artery: Grossly unremarkable. No occlusion or significant stenosis. No large proximal aneurysm. Left middle cerebral artery: Gross unremarkable. No occlusion or significant stenosis. No large proximal aneurysm. Left posterior cerebral artery: Gross unremarkable. No occlusion or significant stenosis. No large proximal aneurysm. Left vertebral artery: Unremarkable as visualized. Basilar artery: Unremarkable. No occlusion or significant stenosis. No aneurysm. IMPRESSION: Markedly limited exam without proximal significant steno-occlusive lesion. EXAM: CT Angiography Neck With Intravenous Contrast CLINICAL HISTORY: ITS.REASON CT Reason: CODE STROKE TECHNIQUE: Axial computed tomographic angiography images of the neck with intravenous contrast using CT angiography protocol. DLP is 1021.2 mGy-cm total for head and neck. This CT exam was performed using one or more of the following dose reduction techniques: automated exposure control, adjustment of the mA and/or kV according to patient size, and/or use of iterative reconstruction technique. MIP reconstructed images were created and reviewed. COMPARISON: None available. FINDINGS: Limitations: Markedly limited exam secondary to poor bolus timing. Within the above limitations, no evidence of significant steno-occlusive lesion. VASCULATURE: Right common carotid artery: Grossly unremarkable. No significant stenosis. No occlusion. Right internal carotid artery: Gross unremarkable. Extracranial segment is patent with no significant stenosis. No occlusion. Right external carotid artery: Gross unremarkable. No occlusion. Right vertebral artery: The right vertebral artery in particular is not well assessed. Left common carotid artery: Grossly unremarkable. No significant stenosis. No occlusion. Left internal carotid artery: Grossly unremarkable. Extracranial segment is patent with no significant stenosis. No occlusion. Left external carotid artery: Gross unremarkable. No occlusion. Left vertebral artery: Grossly unremarkable. No significant stenosis. No occlusion. NECK: Bones/joints: No acute fracture. No dislocation. Soft tissues: Unremarkable as visualized. No mass. CAROTID STENOSIS REFERENCE USING NASCET CRITERIA: % ICA stenosis = (1 - narrowest ICA diameter/diameter of distal cervical ICA) x 100. Mild - <50% stenosis. Moderate - 50-69% stenosis. Severe - 70-94% stenosis. Near occlusion - 95-99% stenosis. Occluded - 100% stenosis. IMPRESSION: Markedly limited exam without significant steno-occlusive lesion. The right vertebral artery is not well characterized however.
[2018-01-15 05:37] LABS: Basophils % (A) 1 %; Eosinophils # (A) 0.3 k/uL (0-0.7); Eosinophils % (A) 5 %; HCT 30.1 % (39.0-53.0); HGB 10.2 gm/dL (13.0-17.5); Lymphocytes # (A) 0.6 k/uL (1.0-4.8); Lymphocytes % (A) 11 %; MCH 31.5 pg (25.0-35.0); MCHC 33.8 g/dL (31.0-37.0); MCV 93.2 fL (80.0-100.0); Mean Platelet Volume 7.7; Monocytes # (A) 0.5 k/uL (0-1.0); Monocytes % (A) 9 %; Neutrophils # (A) 3.7 k/uL (1.3-7.7); Neutrophils % (A) 71 %; Platelet Count 188 k/uL (150-450); RBC 3.23 m/uL (4.30-5.90); RDW 15.3 % (11.5-15.5); WBC 5.2 k/uL (3.8-10.6)
[2018-01-15 05:43] LABS: INR 1.1 (<1.2); Partial Thromboplastin Time 25.3 sec (22.0-30.0); Prothrombin Time 10.7 sec (9.0-12.0)
[2018-01-15 05:44] LABS: ALT 38 U/L (21-72); AST 25 U/L (17-59); Alkaline Phosphatase 70 U/L (38-126); Anion Gap 12 mmol/L; Blood Urea Nitrogen 12 mg/dL (9-20); Calcium 9.5 mg/dL (8.4-10.2); Carbon Dioxide 30 mmol/L (22-30); Chloride 93 mmol/L (98-107); Glucose 127 mg/dL (74-99); Potassium 3.7 mmol/L (3.5-5.1); Sodium 135 mmol/L (137-145); Total Bilirubin 0.5 mg/dL (0.2-1.3); Total Protein 6.4 g/dL (6.3-8.2)
[2018-01-15] MEDS: LEVOTHYROXINE 25 MCG TAB PO SCH (06:26)
[2018-01-15] MEDS: BENZTROPINE MESYLATE 1 MG TAB PO SCH ×2 (09:58→22:51)
[2018-01-15] MEDS: LISINOPRIL 20 MG TAB PO SCH ×2 (09:58→22:52)
[2018-01-15] MEDS: FUROSEMIDE 40 MG TAB PO SCH (09:58)
[2018-01-15] MEDS: carBAMazepine 400 MG TAB.ER.12H PO SCH ×2 (09:58→22:51)
[2018-01-15] MEDS: LACTULOSE 20 GM/30 ML CUP PO SCH (09:59)
[2018-01-15] MEDS: HEPARIN SODIUM,PORCINE 5,000 UNIT/ML 1 ML VIAL SQ SCH ×2 (09:59→22:52)
[2018-01-15] MEDS: BETAMETHASONE DIPROPIONATE 0.05% CREAM 15 GM TUBE TOPICAL SCH (09:59)
[2018-01-15] MEDS: METOPROLOL SUCCINATE (ER) 50 MG TAB.ER.24H PO SCH (09:59)
[2018-01-15] MEDS: risperiDONE 2 MG TAB PO SCH ×2 (10:00→22:51)
--- NOTE | 2018-01-15 16:57 | MR ---
EXAMINATION TYPE: MR brain wo/w con DATE OF EXAM: 01/15/2018 COMPARISON: CT 01/15/2018 HISTORY: 67-year-old male rule out stroke, aphasia TECHNIQUE: Multiplanar, multisequence images of the brain and brainstem were acquired before and aft er administration of 12.5 mL IV Gadavist. Diffusion weighted imaging is performed. FINDINGS: Some motion limitations. No evidence for acute infarction, hemorrhage, mass, mass effect, midline shift, herniation, effacemen t of basal cisterns, or extra-axial fluid collection. There is moderate generalized supratentorial volume loss. Secondary mild prominence to the ventricula r system. Prominent perivascular spaces or lacunar infarcts right basal ganglia. The left vertebral artery is dominant. Otherwise, the major intracranial flow voids are intact. Changes of the FLAIR weighted sequences show mild patchy periventricular white matter bright signal c hange likely relating to chronic small vessel ischemic disease. Midline structures demonstrate normal morphology. The craniocervical junction is normal. Post contrast images demonstrate no evidence of pathologic enhancement. Dural venous sinuses are pat ent. The visualized sinuses are clear and the globes are intact. IMPRESSION: There is moderate cerebral atrophy. Either old lacunar infarct or prominent perivascular spaces espec ially in the right basal ganglia. No acute intracranial abnormality seen.
--- NOTE | 2018-01-15 17:09 | P.CONS ---
History of Present Illness - Reason for Consult Consult date: 01/15/18 Rule out stroke - Chief Complaint Altered mental status - History of Present Illness Is 67-year-old male with a known history of hypertension, hyperlipidemia, hypothyroidism, schizophrenia and stroke. He presented to the emergency department on January 10 complaining of vomiting nausea and low back pain for about 3 days. He was also feeling generally weak and was unable to ambulate because of this. She had a stroke about a year ago leaving him with left-sided weakness. He was being followed for hyponatremia and hypochloremia. His levels have been improving. His psychiatric medications were restarted. Sometime yesterday he started to be more confused and hallucinating. Sometime during the day today he started unintelligible speech with constant rambling. He is not responding very well to commands. CT of the brain was done and showed no evidence of acute intracranial abnormalities. It did show on changed mild small vessel ischemic disease and multiple small chronic-appearing lacunar infarcts. CTA of the head and neck were done. The report says it was markedly limited but without signs of significant occlusive lesions. An MRI has been performed and we are waiting results of that. Review of Systems All systems: negative Constitutional: Reports as per HPI Past Medical History Past Medical History: Hyperlipidemia, Hypertension, Seizure Disorder, Thyroid Disorder Additional Past Medical History / Comment(s): Obesity History of Any Multi-Drug Resistant Organisms: None Reported Past Surgical History: Appendectomy Past Anesthesia/Blood Transfusion Reactions: No Reported Reaction Past Psychological History: Schizophrenia Smoking Status: Former smoker Past Alcohol Use History: None Reported Past Drug Use History: Marijuana - Past Family History Mother Family Medical History: No Reported History Father Family Medical History: No Reported History Medications and Allergies Home Medications Medication Instructions Recorded Confirmed Type Benztropine Mesylate 1 mg PO DAILY 12/15/15 01/10/18 History Cyanocobalamin [Vitamin B-12] 500 mcg PO HS 12/15/15 01/10/18 History Levothyroxine Sodium [Synthroid] 25 mcg PO DAILY 12/15/15 01/10/18 History Lisinopril [Zestril] 20 mg PO BID 12/15/15 01/10/18 History Multivitamin [Men's Multi-Vitamin] 1 tab PO HS 12/15/15 01/10/18 History [place]-3 Fatty Acids/Fish Oil [Fish 1 cap PO HS 12/15/15 01/10/18 History Oil 1,000 mg Softgel] carBAMazepine [TEGretol XR] 400 mg PO Q12HR 12/15/15 01/10/18 History LORazepam [Ativan] 0.5 mg PO DAILY PRN #10 tab 12/19/15 01/10/18 Rx Acetaminophen Tab [Tylenol Tab] 650 mg PO Q4H PRN 01/10/18 01/10/18 History Aspirin [Children's Aspirin] 81 mg PO HS 01/10/18 01/10/18 History Atorvastatin [Lipitor] 20 mg PO HS 01/10/18 01/10/18 History Benztropine Mesylate [Cogentin] 2 mg PO HS 01/10/18 01/10/18 History Cholecalciferol [Vitamin D3] 1,000 unit PO DAILY 01/10/18 01/10/18 History Fluocinonide 0.05% [Lidex 0.05% 1 applic TOPICAL DAILY 01/10/18 01/10/18 History cream] Fluticasone Propionate [Flonase 2 spray EA NOSTRIL BID PRN 01/10/18 01/10/18 History Allergy Relief] Furosemide [Lasix] 40 mg PO BID 01/10/18 01/10/18 History L.acidoph,Paracasei, B.lactis 1 cap PO DAILY 01/10/18 01/10/18 History [Probiotic] Lactulose 20 gm PO DAILY 01/10/18 01/10/18 History Loratadine 10 mg PO DAILY PRN 01/10/18 01/10/18 History Magnesium Hydroxide [Milk of 2,400 mg PO Q72H PRN 01/10/18 01/10/18 History Magnesia] Melatonin 3 mg PO HS 01/10/18 01/10/18 History Meloxicam [Mobic] 7.5 mg PO DAILY 01/10/18 01/10/18 History Menthol [Biofreeze] 1 applic TOPICAL Q8H PRN 01/10/18 01/10/18 History Metolazone [Zaroxolyn] 2.5 mg PO Q48H 01/10/18 01/10/18 History Metoprolol Succinate (ER) [Toprol 50 mg PO DAILY 01/10/18 01/10/18 History Xl] Polyethylene Glycol 3350 [Miralax] 17 gm PO HS 01/10/18 01/10/18 History Potassium Chloride 8 meq PO BID 01/10/18 01/10/18 History guaiFENesin-DM 100-10MG/5ML 10 ml PO Q6H PRN 01/10/18 01/10/18 History [Robitussin DM] metFORMIN HCL [Glucophage] 500 mg PO BID 01/10/18 01/10/18 History risperiDONE 2 mg PO BID 01/10/18 01/10/18 History Allergies Allergy/AdvReac Type Severity Reaction Status Date / Time chlorpromazine HCl Allergy Unknown Verified 01/10/18 20:38 [From Thorazine] Physical Exam Vitals: Vital Signs Temp Pulse Pulse Resp BP Pulse Ox 01/15/18 15:00 99.5 F 71 18 143/80 97 01/15/18 10:54 98.8 F 01/15/18 07:00 100.6 F H 77 18 159/75 95 01/15/18 05:12 78 151/89 01/15/18 03:45 72 72 145/85 99 01/14/18 23:00 99.3 F 74 20 144/83 100 Intake and Output 01/15/18 01/15/18 01/15/18 06:59 14:59 22:59 Other: Voiding Method Bedside Commode Diaper Diaper Incontinent # Voids 2 2 - Constitutional General appearance: no acute distress, obese - EENT Eyes: no abnormal pupil, EOMI, PERRLA, no ptosis - Neck Neck: normal ROM, no rigidity - Respiratory Respiratory: negative: prolonged expiration, prolonged inspiration - Cardiovascular Rhythm: regular - Gastrointestinal General gastrointestinal: no distended, tenderness - Neurologic The patient is awake. He is exhibiting continuous mostly unintelligible speech. He will respond intermittently to simple commands. He will repeat back some words. He will answer the occasional simple questions correctly if limited to one word answers. He has left upper extremity weakness although he does not cooperate with strength testing. There does not seem to be any sensory deficit as he responds to even light touch. There is no facial asymmetry. No tremors or seizure-like activities are seen. Results CBC & Chem 7: 01/15/18 05:25 01/15/18 05:25 Labs: Abnormal Lab Results - Last 24 Hours (Table) 01/15/18 01/15/18 01/15/18 Range/Units 04:11 05:25 05:25 RBC 3.23 L (4.30-5.90) m/uL Hgb 10.2 L (13.0-17.5) gm/dL Hct 30.1 L (39.0-53.0) % Lymphocytes # 0.6 L (1.0-4.8) k/uL Sodium 135 L (137-145) mmol/L Chloride 93 L (98-107) mmol/L Glucose 127 H (74-99) mg/dL POC Glucose (mg/dL) 133 H (75-99) mg/dL Assessment and Plan (1) Altered mental status Current Visit: Yes Status: Acute Code(s): R41.82 - ALTERED MENTAL STATUS, UNSPECIFIED SNOMED Code(s): 711050056 (2) History of stroke Current Visit: Yes Status: Chronic Code(s): Z86.73 - PRSNL HX OF TIA (TIA), AND CEREB INFRC W/O RESID DEFICITS SNOMED Code(s): 536370790 (3) Schizophrenia Current Visit: Yes Status: Chronic Code(s): F20.9 - SCHIZOPHRENIA, UNSPECIFIED SNOMED Code(s): 24248983 (4) Encephalopathy Current Visit: Yes Status: Acute Code(s): G93.40 - ENCEPHALOPATHY, UNSPECIFIED SNOMED Code(s): 40644146 (5) Acute kidney injury Current Visit: Yes Status: Acute Code(s): N17.9 - ACUTE KIDNEY FAILURE, UNSPECIFIED SNOMED Code(s): 64191296 (6) Hyponatremia Current Visit: Yes Status: Acute Code(s): E87.1 - HYPO-OSMOLALITY AND HYPONATREMIA SNOMED Code(s): 15596856 Plan: The patient's new onset of symptoms include increased confusion, possible hallucinations, and continuous garbled speech which has components of a Wernicke his aphasia. His CT did show evidence of multiple old lacunar infarcts. His psychiatric medication has just been restarted. His metabolic abnormalities seem to be resolving. He may be experiencing some significant metabolic encephalopathy versus exacerbation of his underlying psychiatric diagnoses, versus a new stroke. We are still awaiting results of his MRI of the brain. Consideration may be given to cardiology consultation for transesophageal echocardiogram. An EEG and carotid Doppler have been ordered. Continue Lipitor and aspirin. I will check a thyroid panel. We will continue to follow and make recommendations based on the above studies. I have performed a history and physical on the above patient. I have reviewed the above note, and agree.
[2018-01-15] MEDS: ceFAZolin IN SWFI 2 GM/20 ML SYRINGE IVP SCH (17:19)
--- NOTE | 2018-01-15 18:17 | PN ---
PROGRESS NOTE The patient is seen for followup for hyponatremia. His sodium has been improving. The patient was started on Lasix yesterday and he is up to 135 mEq/L today. Patient remains confused. He is currently having an echocardiogram done. EXAMINATION: Blood pressure is 143/80, heart rate 71 per minute. Patient is afebrile. Examination of the heart S1, S2. Examination of the lungs decreased breath sounds at bases. No crackles or wheezing is heard. ABDOMEN: Soft, obese, nontender. Examination lower extremity shows edema 2+ bilaterally. Chronic skin changes are noted. DERRICK OPERATOR exam shows patient is confused, but he is moving all 4 extremities. LAB: Show serum sodium of 135, potassium 3.7, chloride 93, hemoglobin 10.2 g/dL. ASSESSMENT: 1. Hyponatremia initially hypovolemic, currently hypervolemic and improved with oral Lasix. 2. Mental status changes, confusion. Doubt that this is related to hyponatremia as patient's serum sodium has been above 130 for the last 4 days. Continue current dose of Lasix. 3. Acute kidney injury prerenal currently improved. PLAN: Continue with Lasix. Repeat labs in a.m. Followup on workup from Neurology. MMODL / IJN: [id number] /
[2018-01-15] MEDS ORDERED: diphenhydrAMINE 50 MG CAP PO PRN (18:35)
[2018-01-15] MEDS ORDERED: HALOPERIDOL LACTATE 5 MG/ML 1 ML VIAL IM PRN (19:35)
[2018-01-15] MEDS ORDERED: ACETAMINOPHEN TAB 325 MG TAB PO PRN (22:23)
[2018-01-15] MEDS: MELATONIN 3 MG TABLET PO SCH (22:51)
[2018-01-15] MEDS: ATORVASTATIN 20 MG TAB PO SCH (22:51)
[2018-01-15] MEDS: CYANOCOBALAMIN 500 MCG TAB PO SCH (22:52)
[2018-01-15] MEDS: ASPIRIN 81 MG PO SCH (22:52)
[2018-01-16] MEDS: ceFAZolin IN SWFI 2 GM/20 ML SYRINGE IVP SCH ×4 (00:42→23:45)
[2018-01-16 01:11] LABS: Appearance,Urine Clear (Clear); Bilirubin,Urine Negative (Negative); Blood,Urine Negative (Negative); Color,Urine Yellow; Glucose,Urine (UA) Negative (Negative); Ketones,Urine Negative (Negative); Leukocyte Esterase,Urine Negative (Negative); Mucus,Urine Rare /hpf; Nitrite,Urine Negative (Negative); PH, Urine 6.5 (5.0-8.0); Protein,Urine Trace (Negative); RBC,Urine <1 /hpf (0-5); Specific Gravity,Urine 1.017 (1.001-1.035); Squamous Epithelial Cell,Urine <1 /hpf (0-4); Urobilinogen,Urine <2.0 mg/dL (<2.0); WBC,Urine 2 /hpf (0-5)
[2018-01-16] MEDS: LEVOTHYROXINE 25 MCG TAB PO SCH (06:27)
--- NOTE | 2018-01-16 09:33 | ECHOF ---
Referral Reason:fever of unknown origin MEASUREMENTS -------- HEIGHT: 170.2 cm WEIGHT: 125.2 kg BP: 159/75 RVIDd: 3.8 cm (< 3.3) IVSd: 1.4 cm (0.6 - 1.1) LVIDd: 4.3 cm (3.9 - 5.3) LVPWd: 1.4 cm (0.6 - 1.1) IVSs: 1.7 cm LVIDs: 3.0 cm LVPWs: 1.8 cm LA Diam: 3.3 cm (2.7 - 3.8) LAESV Index (A-L): 22.89 ml/m Ao Diam: 3.5 cm (2.0 - 3.7) AV Cusp: 2.4 cm (1.5 - 2.6) MV EXCURSION: 13.644 mm (> 18.000) MV EF SLOPE: 42 mm/s (70 - 150) EPSS: 0.5 cm MV E Joseph: 0.64 m/s MV DecT: 208 ms MV A Joseph: 0.78 m/s MV E/A Ratio: 0.82 RAP: 5.00 mmHg RVSP: 29.15 mmHg FINDINGS -------- Sinus rhythm. This was a technically difficult study with suboptimal views. The left ventricular size is normal. There is moderate concentric left ventricular hypertrophy. O verall left ventricular systolic function is normal with, an EF between 60 - 65 %. The right ventricle is mildly enlarged. Normal LA size by volume 22+/-6 ml/m2. The right atrium is normal in size. 5 ml of Lumason was utilized for enhancement of images. The aortic valve is trileaflet and appears structurally normal. The mitral valve is normal. Mild tricuspid regurgitation present. Right ventricular systolic pressure is normal at < 35 mmHg. The pulmonic valve was not well visualized. The aortic root size is normal. IVC Not well visulized. There is no pericardial effusion. CONCLUSIONS -------- 1. Sinus rhythm. 2. This was a technically difficult study with suboptimal views. 3. The left ventricular size is normal. 4. There is moderate concentric left ventricular hypertrophy. 5. Overall left ventricular systolic function is normal with, an EF between 60 - 65 %. 6. Normal LA size by volume 22+/-6 ml/m2. 7. The right atrium is normal in size. 8. 5 ml of Lumason was utilized for enhancement of images. 9. The aortic valve is trileaflet and appears structurally normal. 10. The mitral valve is normal. 11. Mild tricuspid regurgitation present. 12. Right ventricular systolic pressure is normal at < 35 mmHg. 13. The pulmonic valve was not well visualized. 14. The aortic root size is normal. 15. IVC Not well visulized. 16. There is no pericardial effusion. SILO OPERATOR: Racheal Reid RDCS
[2018-01-16 11:07] LABS: Urine Alcohol Negative (Negative); Urine Barbiturate Negative (Negative); Urine Cocaine Negative (Negative); Urine Methadone Negative (Negative); Urine Opiates Negative (Negative); Urine Phencyclidine Negative (Negative)
[2018-01-16] MEDS: LACTULOSE 20 GM/30 ML CUP PO SCH (11:47)
[2018-01-16] MEDS: HEPARIN SODIUM,PORCINE 5,000 UNIT/ML 1 ML VIAL SQ SCH ×2 (11:47→22:25)
[2018-01-16] MEDS: METOPROLOL SUCCINATE (ER) 50 MG TAB.ER.24H PO SCH (11:48)
[2018-01-16] MEDS: risperiDONE 2 MG TAB PO SCH ×2 (11:48→22:25)
[2018-01-16] MEDS: LISINOPRIL 20 MG TAB PO SCH ×2 (11:48→22:26)
[2018-01-16] MEDS: carBAMazepine 400 MG TAB.ER.12H PO SCH ×2 (11:49→22:25)
[2018-01-16] MEDS: BENZTROPINE MESYLATE 1 MG TAB PO SCH ×2 (11:49→22:26)
[2018-01-16] MEDS: FUROSEMIDE 40 MG TAB PO SCH (11:50)
[2018-01-16] MEDS: BETAMETHASONE DIPROPIONATE 0.05% CREAM 15 GM TUBE TOPICAL SCH (12:03)
--- NOTE | 2018-01-16 12:48 | P.PN ---
Subjective Progress Note Date: 01/16/18 Principal diagnosis: Altered mental status This 67-year-old male continuing to be evaluated by the neurology service for altered mental status. He has a history of stroke with residual left-sided weakness. His presentation in the emergency room were that of nausea vomiting weakness and low back pain for a few days. He has a complex mental health history including schizophrenia. His admission he started to become more confused and hallucinating. This has improved some but he is still somewhat delirious. Recall that his CT of the brain was done emergency room showed no acute intracranial abnormalities. CTA and of the head and neck showed no significant signs of occlusive disease although is markedly limited. His MRI of the brain showed no evidence of acute infarct hemorrhage or mass. It did show some prominent perivascular spaces or possible lacunar infarcts of the right basal ganglia. There was moderate cerebral atrophy. At the time of my exam he is resting comfortably in bed and is less agitated as yesterday. He is a little more responsive. Objective - Vital Signs Vital signs: Vital Signs Temp 99.7 F H 01/16/18 00:47 Pulse 82 01/16/18 07:00 Resp 20 01/16/18 07:00 BP 147/77 01/15/18 23:00 Pulse Ox 91 L 01/16/18 07:00 Intake & Output 01/15/18 01/16/18 01/16/18 18:59 06:59 18:59 Intake Total 0 Balance 0 Intake: Oral 0 Other: Voiding Method Diaper Diaper Incontinent Incontinent # Voids 2 3 - Constitutional General appearance: Present: no acute distress, obese - EENT Eyes: Present: EOMI, PERRLA. Absent: abnormal pupil, ptosis ENT: Present: hearing grossly normal - Neck Neck: Present: normal ROM. Absent: rigidity - Respiratory Respiratory: negative: prolonged expiration, prolonged inspiration - Cardiovascular Rhythm: regular - Gastrointestinal General gastrointestinal: Absent: distended, tenderness - Integumentary Integumentary Comment(s): Areas of what appears to be excoriated psoriasis - Neurologic Neurologic Comment(s): Patient is awake and oriented to self only. He responds appropriately only to simple questions. He does respond to simple commands. No facial asymmetry is seen. Left upper extremity weakness persists. No tremors or seizure-like activities are seen. - Labs CBC & Chem 7: 01/15/18 05:25 01/15/18 05:25 Labs: Abnormal Lab Results - Last 24 Hours (Table) 01/15/18 01/15/18 Range/Units 00:21 05:25 Triglycerides 169 H (<150) mg/dL HDL Cholesterol 29 L (40-60) mg/dL Urine Protein Trace H (Negative) Urine Mucus Rare H (None) /hpf Microbiology - Last 24 Hours (Table) 01/15/18 00:21 Urine Culture - Preliminary Urine,Catheterized Assessment and Plan (1) Altered mental status Current Visit: Yes Status: Acute Code(s): R41.82 - ALTERED MENTAL STATUS, UNSPECIFIED SNOMED Code(s): 720776016 (2) History of stroke Current Visit: Yes Status: Chronic Code(s): Z86.73 - PRSNL HX OF TIA (TIA), AND CEREB INFRC W/O RESID DEFICITS SNOMED Code(s): 753820777 (3) Schizophrenia Current Visit: Yes Status: Chronic Code(s): F20.9 - SCHIZOPHRENIA, UNSPECIFIED SNOMED Code(s): 63318550 (4) Encephalopathy Current Visit: Yes Status: Acute Code(s): G93.40 - ENCEPHALOPATHY, UNSPECIFIED SNOMED Code(s): 82558504 (5) Acute kidney injury Current Visit: Yes Status: Acute Code(s): N17.9 - ACUTE KIDNEY FAILURE, UNSPECIFIED SNOMED Code(s): 41207594 (6) Hyponatremia Current Visit: Yes Status: Acute Code(s): E87.1 - HYPO-OSMOLALITY AND HYPONATREMIA SNOMED Code(s): 46087673 Plan: The patient's new onset of symptoms include increased confusion, possible hallucinations, and continuous garbled speech . His CT did show evidence of multiple old lacunar infarcts. His psychiatric medication have been restarted. His metabolic abnormalities seem to be resolving. He may be experiencing some significant metabolic encephalopathy versus exacerbation of his underlying psychiatric diagnose. as above is MRI of the brain showed no new infarct, but did show some old lacunar infarcts. Consideration should be given to cardiology consultation for transesophageal echocardiogram. An EEG has been ordered. Continue Lipitor and aspirin. I will check a thyroid panel. We will continue to follow and make recommendations based on the above studies. I have performed a history and physical on the above patient. I have reviewed the above note, and agree.
--- NOTE | 2018-01-16 16:37 | PN ---
PROGRESS NOTE The patient is seen for followup for hyponatremia which was initially hypovolemic, currently hypervolemic. He is maintained on oral Lasix and serum sodium continues to improve. The patient has had mental status changes, which appears to be improved today. EXAMINATION: Blood pressure is 147/77, heart rate 82 per minute. He is afebrile. Examination of the heart: S1, S2. Examination lungs: Bilateral breath sounds are heard. Abdomen is soft, non-tender, obese. Examination lower extremity shows edema 1+ bilaterally, slowly improving. The ENGINEERING DIRECTOR examination shows left hemiparesis. LABS SHOW: Sodium 135, potassium 3.7 from yesterday. Hemoglobin was 10.2 g/dL. ASSESSMENT: 1. Hyponatremia initially hypovolemic, currently hypervolemic and maintained on oral Lasix with continued improvement in serum sodium. 2. Altered mentation, possibly related to medications, currently improved. The patient is being followed by Neurology. 3. Acute kidney injury, also prerenal currently improved. The patient did have CTA done yesterday. We will check his renal profile in a.m. PLAN: Check BMP in a.m. Continue with oral Lasix. MMODL / IJN: [id number] /
[2018-01-16] MEDS: CYANOCOBALAMIN 500 MCG TAB PO SCH (22:25)
[2018-01-16] MEDS: ASPIRIN 81 MG PO SCH (22:25)
[2018-01-16] MEDS: ATORVASTATIN 20 MG TAB PO SCH (22:26)
[2018-01-16] MEDS: MELATONIN 3 MG TABLET PO SCH (22:26)
--- NOTE | 2018-01-16 23:08 | P.PN ---
Subjective Progress Note Date: 01/15/18 Principal diagnosis: Hyponatremia and altered mental status Patient is a 67-year-old male with a known history of hypertension, hyperlipidemia, hypothyroidism, CVA with no residual weakness and schizophrenia came to ER with complaints of nausea vomiting and lower back pain. Patient states that his back began to bother him approximately 3 days ago. States that all his pain is across the entire lower back. Denies any recent falls or injuries. He states today he was very queasy, states he has vomited 3 times. Denies any hematemesis. States that after the vomiting he became dizzy. Patient states that he has been more weak than usual is unable to ambulate. He states that he currently resides at [facility] after having a CVA approximately a year ago. Patient denies any chest pain, shortness of breath, abdominal pain, constipation, or diarrhea. Patient denies any recent fever, chills, numbness, tingling, dizziness, weakness, hematuria, dysuria, urinary urgency, urinary frequency, headache, visual changes, or any other complaints. Patient was found to have hyponatremia with sodium level 117 and hypochloremia and serum osmolarity 251 01/12/2018 Patient's sodium level improved to 130 today. Patient was seen by nephrology and recommended to hold IV fluids to evaluate for SIADH. Otherwise patient is awake oriented and clinically improved. No fever no chills no acute overnight issues. 01/13/2018 Sodium level improved to 132 today. Patient continues to be off IV fluids. Recommended good protein diet as outpatient and follow-up as an outpatient as per nephrology recommendations. He anticipate discharged tomorrow with more clinical improvement. 01/14/2018 Patient is confused and hallucinating today. Patient is also having worsening lower action to swelling. Lasix was restarted. Patient will be restarted on his psychiatric medications as well. Otherwise no fever no chills. We will repeat CBC and BMP tomorrow. Nephrology is on board. 01/15/2018 Patient has increased altered mental status with hallucinations and infrequent smiling in between and talking himself. Stroke workup has been initiated. CT of the brain was done and showed no evidence of acute intracranial abnormalities. It did show on changed mild small vessel ischemic disease and multiple small chronic-appearing lacunar infarcts. CTA of the head and neck were done. The report says it was markedly limited but without signs of significant occlusive lesions. Neurology was consulted. MRA of the brain was ordered as well. Otherwise sodium level improved to 135 Complete review of systems could not be obtained from the patient Current medications reviewed Objective - Vital Signs Vital signs: Vital Signs Temp 99.5 F 01/15/18 15:00 Pulse 71 01/15/18 15:00 Resp 18 01/15/18 15:00 BP 143/80 01/15/18 15:00 Pulse Ox 97 01/15/18 15:00 Intake & Output 01/15/18 01/15/18 01/16/18 06:59 18:59 06:59 Other: Voiding Method Bedside Commode Diaper Diaper Incontinent # Voids 2 2 - Exam PHYSICAL EXAMINATION: Patient is lying in the bed comfortably, no acute distress, awake alert but not by himself and smiling. HEENT: Normocephalic. Neck is supple. Pupils reactive. Nostrils clear. Oral cavity is moist. Ears reveal no drainage. Neck reveals no JVD, carotid bruits, or thyromegaly. CHEST EXAMINATION: Trachea is central. Symmetrical expansion. Lung de dios clear to auscultation and percussion. CARDIAC: Normal S1, S2 with no gallops. No murmurs ABDOMEN: Soft. Bowel sounds normal. No organomegaly. No abdominal bruits. Extremities: reveal no edema. No clubbing or cyanosis Neurologically awake, alert, but not following commands.. No new focal deficits noted Skin: No rash or skin lesions. Psychiatric: Coperative. Nonsuicidal Musculoskeletal: No joint swelling or deformity. Normal range of motion. - Labs CBC & Chem 7: 01/15/18 05:25 01/15/18 05:25 Labs: Abnormal Lab Results - Last 24 Hours (Table) 01/15/18 01/15/18 01/15/18 Range/Units 04:11 05:25 05:25 RBC 3.23 L (4.30-5.90) m/uL Hgb 10.2 L (13.0-17.5) gm/dL Hct 30.1 L (39.0-53.0) % Lymphocytes # 0.6 L (1.0-4.8) k/uL Sodium 135 L (137-145) mmol/L Chloride 93 L (98-107) mmol/L Glucose 127 H (74-99) mg/dL POC Glucose (mg/dL) 133 H (75-99) mg/dL Triglycerides (<150) mg/dL HDL Cholesterol (40-60) mg/dL 01/15/18 Range/Units 05:25 RBC (4.30-5.90) m/uL Hgb (13.0-17.5) gm/dL Hct (39.0-53.0) % Lymphocytes # (1.0-4.8) k/uL Sodium (137-145) mmol/L Chloride (98-107) mmol/L Glucose (74-99) mg/dL POC Glucose (mg/dL) (75-99) mg/dL Triglycerides 169 H (<150) mg/dL HDL Cholesterol 29 L (40-60) mg/dL Assessment and Plan Assessment: Hypoosmolar hyponatremia likely due to hypovolemic Due to nausea vomiting and diarrhea along with diuretics Lasix. Improved Acute altered mental status with infrequent smiling and talking to himself. Suspected acute CVA versus underlying psychiatric condition. Hallucinations Hypothyroidism Schizophrenia Morbid obesity BMI 43.3 Hyperlipidemia Hypertension Diabetes type II. [id number] Chronic pain Lower extremity swelling. Bilateral. Likely due to dependent edema. No history of CHF. Restarted Lasix Plan: Patient is off IV fluids. Sodium improved from 117--125 --130--132--135. Patient has been restarted on antipsychotic medications. Appreciate nephrology recommendations. Neurology was consulted. Recommended to follow-up as an outpatient at this time. Further recommendations based on the clinical course. Time with Patient: Greater than 30
--- NOTE | 2018-01-16 23:11 | P.PN ---
Subjective Progress Note Date: 01/16/18 Principal diagnosis: Hyponatremia and altered mental status Patient is a 67-year-old male with a known history of hypertension, hyperlipidemia, hypothyroidism, CVA with no residual weakness and schizophrenia came to ER with complaints of nausea vomiting and lower back pain. Patient states that his back began to bother him approximately 3 days ago. States that all his pain is across the entire lower back. Denies any recent falls or injuries. He states today he was very queasy, states he has vomited 3 times. Denies any hematemesis. States that after the vomiting he became dizzy. Patient states that he has been more weak than usual is unable to ambulate. He states that he currently resides at [facility] after having a CVA approximately a year ago. Patient denies any chest pain, shortness of breath, abdominal pain, constipation, or diarrhea. Patient denies any recent fever, chills, numbness, tingling, dizziness, weakness, hematuria, dysuria, urinary urgency, urinary frequency, headache, visual changes, or any other complaints. Patient was found to have hyponatremia with sodium level 117 and hypochloremia and serum osmolarity 251 01/12/2018 Patient's sodium level improved to 130 today. Patient was seen by nephrology and recommended to hold IV fluids to evaluate for SIADH. Otherwise patient is awake oriented and clinically improved. No fever no chills no acute overnight issues. 01/13/2018 Sodium level improved to 132 today. Patient continues to be off IV fluids. Recommended good protein diet as outpatient and follow-up as an outpatient as per nephrology recommendations. He anticipate discharged tomorrow with more clinical improvement. 01/14/2018 Patient is confused and hallucinating today. Patient is also having worsening lower action to swelling. Lasix was restarted. Patient will be restarted on his psychiatric medications as well. Otherwise no fever no chills. We will repeat CBC and BMP tomorrow. Nephrology is on board. 01/15/2018 Patient has increased altered mental status with hallucinations and infrequent smiling in between and talking himself. Stroke workup has been initiated. CT of the brain was done and showed no evidence of acute intracranial abnormalities. It did show on changed mild small vessel ischemic disease and multiple small chronic-appearing lacunar infarcts. CTA of the head and neck were done. The report says it was markedly limited but without signs of significant occlusive lesions. Neurology was consulted. MRA of the brain was ordered as well. Otherwise sodium level improved to 135 01/16/2018 Patient is still confused and talking to himself. Mentation slightly improved. MRI of the brain showed no acute process. Showed old black infarcts and atrophy. 2-D echo showed normal ejection fraction. Otherwise neurology is following. Consulted psychiatry as well. Otherwise no fever no chills. No chest pain or short of breath no nausea vomiting or diarrhea. Complete review of systems could not be obtained from the patient Current medications reviewed Objective - Vital Signs Vital signs: Vital Signs Temp 98.1 F 01/16/18 15:00 Pulse 65 01/16/18 15:00 Resp 18 01/16/18 15:00 BP 130/60 01/16/18 15:00 Pulse Ox 100 01/16/18 15:00 Intake & Output 01/16/18 01/16/18 01/17/18 06:59 18:59 06:59 Intake Total 0 Balance 0 Intake: Oral 0 Other: Voiding Method Diaper Diaper Incontinent Incontinent # Voids 3 2 - Exam PHYSICAL EXAMINATION: Patient is lying in the bed comfortably, no acute distress, awake alert but not by himself and smiling. HEENT: Normocephalic. Neck is supple. Pupils reactive. Nostrils clear. Oral cavity is moist. Ears reveal no drainage. Neck reveals no JVD, carotid bruits, or thyromegaly. CHEST EXAMINATION: Trachea is central. Symmetrical expansion. Lung de dios clear to auscultation and percussion. CARDIAC: Normal S1, S2 with no gallops. No murmurs ABDOMEN: Soft. Bowel sounds normal. No organomegaly. No abdominal bruits. Extremities: reveal no edema. No clubbing or cyanosis Neurologically awake, alert, but not following commands.. No new focal deficits noted Skin: No rash or skin lesions. Psychiatric: Coperative. Nonsuicidal Musculoskeletal: No joint swelling or deformity. Normal range of motion. - Labs CBC & Chem 7: 01/15/18 05:25 01/15/18 05:25 Labs: Abnormal Lab Results - Last 24 Hours (Table) 01/15/18 Range/Units 00:21 Urine Protein Trace H (Negative) Urine Mucus Rare H (None) /hpf Microbiology - Last 24 Hours (Table) 01/15/18 11:04 Blood Culture - Preliminary Blood No Growth after 24 hours 01/15/18 10:59 Blood Culture - Preliminary Blood No Growth after 24 hours 01/15/18 00:21 Urine Culture - Preliminary Urine,Catheterized Assessment and Plan Assessment: Hypoosmolar hyponatremia likely due to hypovolemic Due to nausea vomiting and diarrhea along with diuretics Lasix. Improved Acute altered mental status with infrequent smiling and talking to himself. Suspected acute CVA versus underlying psychiatric condition. Stroke workup including MRI negative Hallucinations Hypothyroidism Schizophrenia Morbid obesity BMI 43.3 Hyperlipidemia Hypertension Diabetes type II. Elb-ubtralo-lnpfptaqs Chronic pain Lower extremity swelling. Bilateral. Likely due to dependent edema. No history of CHF. Restarted Lasix Plan: Patient is off IV fluids. Sodium improved from 117--125 --130--132--135. Patient has been restarted on antipsychotic medications. Appreciate nephrology recommendations. Neurology was consulted. MRI brain showed no acute process. Altered mental status is most likely secondary to underlying psychiatric condition. Recommended to follow-up as an outpatient at this time. Further recommendations based on the clinical course. Time with Patient: Greater than 30
[2018-01-17] MEDS: LEVOTHYROXINE 25 MCG TAB PO SCH (06:17)
[2018-01-17 07:46] VITALS: RESP 16
[2018-01-17 08:08] LABS: Anion Gap 13 mmol/L; Blood Urea Nitrogen 17 mg/dL (9-20); Calcium 9.5 mg/dL (8.4-10.2); Carbon Dioxide 28 mmol/L (22-30); Chloride 97 mmol/L (98-107); Glucose 110 mg/dL (74-99); Potassium 4.3 mmol/L (3.5-5.1); Sodium 138 mmol/L (137-145)
--- NOTE | 2018-01-17 09:36 | P.PN ---
Subjective Patient is seen in follow-up for acute kidney injury and hyponatremia. Sodium level is up to 138 and creatinine is 1.17 today. He is currently maintained on Lasix 40 mg once daily. Oral intake is fair. He has been voiding but is incontinent. Hemodynamically stable. No vomiting or diarrhea. Denies chest pain or shortness of breath. Vital signs are stable. General: The patient appeared well nourished and normally developed. HEENT: Head exam is unremarkable. Neck is without jugular venous distension. LUNGS: Lungs are clear to auscultation and percussion. Breath sounds decreased. HEART: Rate and Rhythm are regular. First and second heart sounds normal. No murmurs, rubs or gallops. ABDOMEN: Abdominal exam reveals normal bowel sounds. Non-tender and non- distended. No evidence of peritonitis. EXTREMITITES: No clubbing, cyanosis, or edema. Objective - Vital Signs Vital signs: Vital Signs Temp 98.3 F 01/17/18 07:00 Pulse 60 01/17/18 07:00 Resp 16 01/17/18 07:00 BP 115/65 01/17/18 07:00 Pulse Ox 97 01/17/18 07:00 Intake & Output 01/16/18 01/17/18 01/17/18 18:59 06:59 18:59 Other: Voiding Method Diaper Diaper Incontinent Incontinent # Voids 2 2 - Labs CBC & Chem 7: 01/15/18 05:25 01/17/18 07:12 Labs: Abnormal Lab Results - Last 24 Hours (Table) 01/17/18 Range/Units 07:12 Chloride 97 L (98-107) mmol/L Glucose 110 H (74-99) mg/dL Microbiology - Last 24 Hours (Table) 01/15/18 11:04 Blood Culture - Preliminary Blood No Growth after 24 hours 01/15/18 10:59 Blood Culture - Preliminary Blood No Growth after 24 hours 01/15/18 00:21 Urine Culture - Preliminary Urine,Catheterized Assessment and Plan Plan: Assessment: #1. Mild nonoliguric acute kidney injury, mostly prerenal from diuretics. Patient also received IV contrast on January 15. Creatinine was 1.3 on admission and did come down to 0.8. It is up to 1.17 today. #2. Hypervolemic hyponatremia improving with diuresis. Sodium level up to 138 today. #3. Benign hypertension. Controlled. #4. Altered mental status being followed by neurology. CT of the brain and MRI revealed no acute changes. Plan: Continue Lasix 40 mg orally once daily. Continue to monitor renal function and urine output as he's at a risk for developing contrast-induced nephropathy. Encourage oral intake. Avoid nephrotoxic agents and hypotensive episodes. Repeat electrolytes in the morning.
[2018-01-17] MEDS: HEPARIN SODIUM,PORCINE 5,000 UNIT/ML 1 ML VIAL SQ SCH ×2 (10:31→19:39)
[2018-01-17] MEDS: LACTULOSE 20 GM/30 ML CUP PO SCH (10:31)
[2018-01-17] MEDS: carBAMazepine 400 MG TAB.ER.12H PO SCH ×2 (10:31→19:38)
[2018-01-17] MEDS: LISINOPRIL 20 MG TAB PO SCH ×2 (10:32→19:38)
[2018-01-17] MEDS: risperiDONE 2 MG TAB PO SCH (10:32)
[2018-01-17] MEDS: BENZTROPINE MESYLATE 1 MG TAB PO SCH ×2 (10:32→19:38)
[2018-01-17] MEDS: FUROSEMIDE 40 MG TAB PO SCH (11:01)
[2018-01-17] MEDS ORDERED: THIAMINE 100 MG TAB PO SCH (12:00)
--- NOTE | 2018-01-17 12:01 | P.DS ---
Providers Date of admission: 01/10/18 22:27 Attending physician: Sepideh Mccarthy Consults: 01/11/18 23:33 Consult Physician Routine Consulting Provider: Sunshine Gutiérrez Consult Reason/Comments: Hyponatremia Do you want consulting provider notified?: Yes, Notify in am 01/15/18 10:57 Consult Physician Urgent Consulting Provider: Cherry Ying Consult Reason/Comments: rule out stroke Do you want consulting provider notified?: Yes Primary care physician: [facility] Course: 67-year-old male with a known history of hypertension, hyperlipidemia, hypothyroidism, CVA with no residual weakness and schizophrenia came to ER with complaints of nausea vomiting and lower back pain. Patient states that his back began to bother him approximately 3 days ago. States that all his pain is across the entire lower back. Denies any recent falls or injuries. He states today he was very queasy, states he has vomited 3 times. Denies any hematemesis. States that after the vomiting he became dizzy. Patient states that he has been more weak than usual is unable to ambulate. He states that he currently resides at [facility] after having a CVA approximately a year ago. Patient denies any chest pain, shortness of breath, abdominal pain, constipation, or diarrhea. Patient denies any recent fever, chills, numbness, tingling, dizziness, weakness, hematuria, dysuria, urinary urgency, urinary frequency, headache, visual changes, or any other complaints. Patient was found to have hyponatremia with sodium level 117 and hypochloremia and serum osmolarity 251 01/12/2018 Patient's sodium level improved to 130 today. Patient was seen by nephrology and recommended to hold IV fluids to evaluate for SIADH. Otherwise patient is awake oriented and clinically improved. No fever no chills no acute overnight issues. 01/13/2018 Sodium level improved to 132 today. Patient continues to be off IV fluids. Recommended good protein diet as outpatient and follow-up as an outpatient as per nephrology recommendations. He anticipate discharged tomorrow with more clinical improvement. 01/14/2018 Patient is confused and hallucinating today. Patient is also having worsening lower action to swelling. Lasix was restarted. Patient will be restarted on his psychiatric medications as well. Otherwise no fever no chills. We will repeat CBC and BMP tomorrow. Nephrology is on board. 01/15/2018 Patient has increased altered mental status with hallucinations and infrequent smiling in between and talking himself. Stroke workup has been initiated. CT of the brain was done and showed no evidence of acute intracranial abnormalities. It did show on changed mild small vessel ischemic disease and multiple small chronic-appearing lacunar infarcts. CTA of the head and neck were done. The report says it was markedly limited but without signs of significant occlusive lesions. Neurology was consulted. MRA of the brain was ordered as well. Otherwise sodium level improved to 135 01/16/2018 Patient is still confused and talking to himself. Mentation slightly improved. MRI of the brain showed no acute process. Showed old black infarcts and atrophy. 2-D echo showed normal ejection fraction. Otherwise neurology is following. Consulted psychiatry as well. Otherwise no fever no chills. No chest pain or short of breath no nausea vomiting or diarrhea. 01/17/2018 Patient confusion was probably related to metabolic causes including hyponatremia which was believed secondary to hypervolemic hyponatremia improved with the diuretic therapy. If cleared by nephrology patient will be discharged today patient is fairly euvolemic at this time. Patient's sodium did improve. Patient does have hallucinations secondary to his psychotic condition. Patient was extensively evaluated by neurology including MRI all of which did show old stroke no evidence of acute or subacute stroke and neurology is recommending to continue Lipitor and aspirin and patient will be discharged today back to subacute rehabilitation. PHYSICAL EXAMINATION: Patient is lying in the bed comfortably, no acute distress, awake alert but not by himself and smiling. HEENT: Normocephalic. Neck is supple. Pupils reactive. Nostrils clear. Oral cavity is moist. Ears reveal no drainage. Neck reveals no JVD, carotid bruits, or thyromegaly. CHEST EXAMINATION: Trachea is central. Symmetrical expansion. Lung de dios clear to auscultation and percussion. CARDIAC: Normal S1, S2 with no gallops. No murmurs ABDOMEN: Soft. Bowel sounds normal. No organomegaly. No abdominal bruits. Extremities: reveal no edema. No clubbing or cyanosis Neurologically awake, alert, but not following commands.. No new focal deficits noted Skin: No rash or skin lesions. Psychiatric: Coperative. Nonsuicidal Musculoskeletal: No joint swelling or deformity. Normal range of motion. Assessment and Plan Assessment: Hypervolemic hyponatremia: Resolved at this time Acute altered mental status . It appears to be secondary to hyponatremia and psychiatric condition. Stroke workup including MRI negative Hallucinations Hypothyroidism Schizophrenia Morbid obesity BMI 43.3 Hyperlipidemia Hypertension Diabetes type II. Ouo-zyzvuqb-wuokgqocn Chronic pain Lower extremity swelling. Bilateral. Likely due to dependent edema. Patient may have diastolic dysfunction, presently not in acute exacerbation was treated with for acute exacerbation during this hospitalization Patient Condition at Discharge: Serious Plan - Discharge Summary Discharge Rx Participant: No New Discharge Prescriptions: New HYDROcodone/APAP 5-325MG [Ashley 5-325] 1 each PO Q4HR PRN #20 tab PRN Reason: Moderate Pain Continue Benztropine Mesylate 1 mg PO DAILY carBAMazepine [TEGretol XR] 400 mg PO Q12HR Levothyroxine Sodium [Synthroid] 25 mcg PO DAILY Lisinopril [Zestril] 20 mg PO BID [place]-3 Fatty Acids/Fish Oil [Fish Oil 1,000 mg Softgel] 1 cap PO HS Multivitamin [Men's Multi-Vitamin] 1 tab PO HS Cyanocobalamin [Vitamin B-12] 500 mcg PO HS Metoprolol Succinate (ER) [Toprol XL] 50 mg PO DAILY Metolazone [Zaroxolyn] 2.5 mg PO Q48H Melatonin 3 mg PO HS Lactulose 20 gm PO DAILY Fluocinonide 0.05% [Lidex 0.05% cream] 1 applic TOPICAL DAILY Atorvastatin [Lipitor] 20 mg PO HS risperiDONE 2 mg PO BID metFORMIN HCL [Glucophage] 500 mg PO BID Potassium Chloride 8 meq PO BID Magnesium Hydroxide [Milk of Magnesia] 2,400 mg PO Q72H PRN PRN Reason: Constipation Loratadine 10 mg PO DAILY PRN PRN Reason: Itching Fluticasone Propionate [Flonase Allergy Relief] 2 spray EA NOSTRIL BID PRN PRN Reason: Allergy Symptoms Aspirin [Children's Aspirin] 81 mg PO HS guaiFENesin-DM 100-10MG/5ML [Robitussin DM] 10 ml PO Q6H PRN PRN Reason: Cough Menthol [Biofreeze] 1 applic TOPICAL Q8H PRN PRN Reason: Pain Acetaminophen Tab [Tylenol] 650 mg PO Q4H PRN PRN Reason: Fever And/ Or Pain Furosemide [Lasix] 40 mg PO BID L.acidoph,Paracasei, B.lactis [Probiotic] 1 cap PO DAILY Cholecalciferol [Vitamin D3] 1,000 unit PO DAILY Polyethylene Glycol 3350 [Miralax] 17 gm PO HS Benztropine Mesylate [Cogentin] 2 mg PO HS LORazepam [Ativan] 0.5 mg PO DAILY PRN #10 tab PRN Reason: Anxiety Discontinued Meloxicam [Mobic] 7.5 mg PO DAILY Discharge Medication List Benztropine Mesylate 1 mg PO DAILY 12/15/15 [History] Cyanocobalamin [Vitamin B-12] 500 mcg PO HS 12/15/15 [History] Levothyroxine Sodium [Synthroid] 25 mcg PO DAILY 12/15/15 [History] Lisinopril [Zestril] 20 mg PO BID 12/15/15 [History] Multivitamin [Men's Multi-Vitamin] 1 tab PO HS 12/15/15 [History] [place]-3 Fatty Acids/Fish Oil [Fish Oil 1,000 mg Softgel] 1 cap PO HS 12/15/15 [ History] carBAMazepine [TEGretol XR] 400 mg PO Q12HR 12/15/15 [History] Acetaminophen Tab [Tylenol] 650 mg PO Q4H PRN 01/10/18 [History] Aspirin [Children's Aspirin] 81 mg PO HS 01/10/18 [History] Atorvastatin [Lipitor] 20 mg PO HS 01/10/18 [History] Benztropine Mesylate [Cogentin] 2 mg PO HS 01/10/18 [History] Cholecalciferol [Vitamin D3] 1,000 unit PO DAILY 01/10/18 [History] Fluocinonide 0.05% [Lidex 0.05% cream] 1 applic TOPICAL DAILY 01/10/18 [History] Fluticasone Propionate [Flonase Allergy Relief] 2 spray EA NOSTRIL BID PRN 01/10 [History] Furosemide [Lasix] 40 mg PO BID 01/10/18 [History] L.acidoph,Paracasei, B.lactis [Probiotic] 1 cap PO DAILY 01/10/18 [History] Lactulose 20 gm PO DAILY 01/10/18 [History] Loratadine 10 mg PO DAILY PRN 01/10/18 [History] Magnesium Hydroxide [Milk of Magnesia] 2,400 mg PO Q72H PRN 01/10/18 [History] Melatonin 3 mg PO HS 01/10/18 [History] Menthol [Biofreeze] 1 applic TOPICAL Q8H PRN 01/10/18 [History] Metolazone [Zaroxolyn] 2.5 mg PO Q48H 01/10/18 [History] Metoprolol Succinate (ER) [Toprol XL] 50 mg PO DAILY 01/10/18 [History] Polyethylene Glycol 3350 [Miralax] 17 gm PO HS 01/10/18 [History] Potassium Chloride 8 meq PO BID 01/10/18 [History] guaiFENesin-DM 100-10MG/5ML [Robitussin DM] 10 ml PO Q6H PRN 01/10/18 [History] metFORMIN HCL [Glucophage] 500 mg PO BID 01/10/18 [History] risperiDONE 2 mg PO BID 01/10/18 [History] HYDROcodone/APAP 5-325MG [Ashley 5-325] 1 each PO Q4HR PRN #20 tab 01/17/18 [Rx] LORazepam [Ativan] 0.5 mg PO DAILY PRN #10 tab 01/17/18 [Rx] Follow up Appointment(s)/Referral(s): Blas Rogers MD [Primary Care Provider] - 1-2 days
[2018-01-17] MEDS: ceFAZolin IN SWFI 2 GM/20 ML SYRINGE IVP SCH ×2 (13:52→17:46)
[2018-01-17 15:31] VITALS: BP 123/60; PULSE 64; TEMP 98.9
[2018-01-17] MEDS: BETAMETHASONE DIPROPIONATE 0.05% CREAM 15 GM TUBE TOPICAL SCH (17:45)
[2018-01-17] MEDS: METOPROLOL SUCCINATE (ER) 50 MG TAB.ER.24H PO SCH (17:46)
--- NOTE | 2018-01-17 18:56 | EEG ---
ELECTROENCEPHALOGRAM REPORT DATE OF SERVICE: 01/17/2018. REASON FOR TESTING: Altered mental status. DESCRIPTION OF THE PROCEDURE: This EEG was performed using a 21 channel digital electroencephalograph, following international 10-20 system. DESCRIPTION OF THE RECORDING: From the beginning of the tracing, with patient's eyes closed, the background rhythm was mostly consisting of 8 Hz alpha frequency in the posterior occipital leads. No obvious asymmetry is seen. Photic stimulation was performed with a good driving response seen. No pathological waves were elicited. Occasional movement artifacts and rare lead artifacts are seen. Hyperventilation was not performed. The patient remains awake throughout the tracing. No epileptiform discharges were seen. His EKG lead showed a regular rate and rhythm. INTERPRETATION: This awake EEG can be considered within normal limits. There is no asymmetry seen. No epileptiform discharges were noticed. The absence of epileptiform discharges does not rule out the diagnosis of epilepsy, therefore clinical correlation is recommended. MMELSIEL / IJKaty: [id number] /
[2018-01-17] MEDS: ASPIRIN 81 MG PO SCH (19:38)
[2018-01-17] MEDS: ATORVASTATIN 20 MG TAB PO SCH (19:38)
[2018-01-17] MEDS: CYANOCOBALAMIN 500 MCG TAB PO SCH (19:39)
== END 2018-01-17 19:53 | DRG 641 ==
LOC: EC 20:20 → 5MS5E 22:27
PROVIDERS: ADMIT Hospitalist; ATTEND Hospitalist
DX: E87.1 Hypo-osmolality and hyponatremia (principal); N17.9 Acute kidney failure, unspecified; E66.01 Morbid (severe) obesity due to excess calories; F20.9 Schizophrenia, unspecified; Z68.41 Body mass index [BMI] 40.0-44.9, adult; I69.354 Hemiplegia and hemiparesis following cerebral infarction affecting left non-dominant side; R44.3 Hallucinations, unspecified; E86.1 Hypovolemia; E87.8 Other disorders of electrolyte and fluid balance, not elsewhere classified; E03.9 Hypothyroidism, unspecified; E78.5 Hyperlipidemia, unspecified; I10 Essential (primary) hypertension; G40.909 Epilepsy, unspecified, not intractable, without status epilepticus; E11.9 Type 2 diabetes mellitus without complications; G89.29 Other chronic pain; Z79.82 Long term (current) use of aspirin; Z79.84 Long term (current) use of oral hypoglycemic drugs; Z79.1 Long term (current) use of non-steroidal anti-inflammatories (NSAID); Z79.51 Long term (current) use of inhaled steroids; Z79.899 Other long term (current) drug therapy; Z87.891 Personal history of nicotine dependence; Z88.8 Allergy status to other drugs, medicaments and biological substances; R60.0 Localized edema; E87.70 Fluid overload, unspecified; R32 Unspecified urinary incontinence
CPT/HCPCS: 36415; 70450; 70496; 70498; 70553; 71045; 74018; 80048; 80053; 80061; 80306; 81003; 82150; 82533; 83690; 83930; 83935; 84295; 84300; 84443; 84484; 85025; 85610; 85730; 87040; 87086; 93306; 95819; 96361; 96374; 99285

== ENCOUNTER 2020-02-13 03:11 | Inpatient (IN) | payer MEDICARE, BC, OTHER ==
[2020-02-13] MEDS ORDERED: ACETAMINOPHEN TAB 500 MG TAB PO STA (03:22)
--- NOTE | 2020-02-13 03:50 | ED ---
General Adult HPI - General Chief complaint: Altered Mental Status Stated complaint: Altered Mental Status Time Seen by Provider: 02/13/20 03:21 Source: EMS Mode of arrival: EMS Limitations: no limitations - History of Present Illness Initial comments: Dictation was produced using [email or web address] dictation software. please excuse any grammatical, word or spelling errors. Chief Complaint: 69-year-old male presents with fever, abdominal pain. History of Present Illness: Is a 69-year-old male he has past medical history of stroke with residual left-sided deficits. Patient is brought in from [facility]. He was seen at the facility to be difficult to arouse. EMS was called. Upon EMS arrival patient was given a sternal rub and woke right up. Patient states he has abdominal pain. Patient is a poor historian. Does say yes when asked if he has any fever or constitutional symptoms. Patient complains of whole abdominal pain. The ROS documented in this emergency department record has been reviewed and confirmed by me. Those systems with pertinent positive or negative responses have been documented in the HPI. All other systems are other negative and/or noncontributory. PHYSICAL EXAM: General Impression: Alert and oriented x3, not in acute distress, malodorous HEENT: Normocephalic atraumatic, extra-ocular movements intact, pupils equal and reactive to light bilaterally, dry mucous membranes Cardiovascular: Heart regular rate and rhythm, S1&S2 audible, no murmurs, rubs or gallops Chest: Lungs clear to auscultation bilaterally, no rhonchi, no wheeze, no rales Abdomen: Bowel sounds present, abdomen soft, diffuse abdominal tenderness. Musculoskeletal: Pulses present and equal in all extremities, no peripheral lynn ma Motor: no focal deficits noted Neurological: CN II-XII grossly intact, no focal motor or sensory deficits noted, contracture to his left upper extremity Skin: Intact with no visualized rashes, no perineal induration Psych: Normal affect and mood ED course: 69-year-old male presents with fever and abdominal pain. Vital signs upon arrival shows some trouble 102.7, rest of vital signs within acceptable limits. Patient is fairly well appearing at bedside. No leukocytosis. Hemoglobin 12.8. Coag panel unremarkable. Serum of 131. Lactic acidosis of 3.6. Urinalysis shows greater than 182 white blood cells. There is trace ketones. Influenza test negative. Chest x-ray shows no acute processes. Brain CT is unremarkable. Clinical presentation consistent with UTI sepsis. Given patient having pyrexia there is concerns of early sepsis. Patient be admitted for IV antibiotics. He received ceftriaxone. Patient be admitted to [facility] hospitalist group. EKG interpretation: Ventricular rate 91, normal sinus rhythm, NJ interval 176, QRS 70, QTc 440. No NJ prolongation, no QTC prolongation, no ST or T-wave changes noted. . Overall, this EKG is unremarkable - Related Data Home Medications Medication Instructions Recorded Confirmed Benztropine Mesylate 1 mg PO DAILY 12/15/15 01/10/18 Cyanocobalamin [Vitamin B-12] 500 mcg PO HS 12/15/15 01/10/18 Levothyroxine Sodium [Synthroid] 25 mcg PO DAILY 12/15/15 01/10/18 Lisinopril [Zestril] 20 mg PO BID 12/15/15 01/10/18 Multivitamin [Men's Multi-Vitamin] 1 tab PO HS 12/15/15 01/10/18 [place]-3 Fatty Acids/Fish Oil [Fish 1 cap PO HS 12/15/15 01/10/18 Oil 1,000 mg Softgel] carBAMazepine [TEGretol XR] 400 mg PO Q12HR 12/15/15 01/10/18 Acetaminophen Tab [Tylenol] 650 mg PO Q4H PRN 01/10/18 01/10/18 Aspirin [Children's Aspirin] 81 mg PO HS 01/10/18 01/10/18 Atorvastatin [Lipitor] 20 mg PO HS 01/10/18 01/10/18 Benztropine Mesylate [Cogentin] 2 mg PO HS 01/10/18 01/10/18 Cholecalciferol [Vitamin D3 (25 1,000 unit PO DAILY 01/10/18 01/10/18 Mcg = 1000 Iu)] Fluocinonide 0.05% [Lidex 0.05% 1 applic TOPICAL DAILY 01/10/18 01/10/18 cream] Fluticasone Propionate [Flonase 2 spray EA NOSTRIL BID PRN 01/10/18 01/10/18 Allergy Relief] Furosemide [Lasix] 40 mg PO BID 01/10/18 01/10/18 L.acidoph,Paracasei, B.lactis 1 cap PO DAILY 01/10/18 01/10/18 [Probiotic] Lactulose 20 gm PO DAILY 01/10/18 01/10/18 Loratadine 10 mg PO DAILY PRN 01/10/18 01/10/18 Magnesium Hydroxide [Milk of 2,400 mg PO Q72H PRN 01/10/18 01/10/18 Magnesia] Melatonin 3 mg PO HS 01/10/18 01/10/18 Menthol [Biofreeze] 1 applic TOPICAL Q8H PRN 01/10/18 01/10/18 Metolazone [Zaroxolyn] 2.5 mg PO Q48H 01/10/18 01/10/18 Metoprolol Succinate (ER) [Toprol 50 mg PO DAILY 01/10/18 01/10/18 XL] Polyethylene Glycol 3350 [Miralax] 17 gm PO HS 01/10/18 01/10/18 Potassium Chloride 8 meq PO BID 01/10/18 01/10/18 guaiFENesin-DM 100-10MG/5ML 10 ml PO Q6H PRN 01/10/18 01/10/18 [Robitussin DM] metFORMIN HCL [Glucophage] 500 mg PO BID 01/10/18 01/10/18 risperiDONE 2 mg PO BID 01/10/18 01/10/18 Previous Rx's Medication Instructions Recorded HYDROcodone/APAP 5-325MG [[place] 1 each PO Q4HR PRN #20 tab 01/17/18 5-325] LORazepam [Ativan] 0.5 mg PO DAILY PRN #10 tab 01/17/18 Allergies Allergy/AdvReac Type Severity Reaction Status Date / Time chlorpromazine HCl Allergy Unknown Verified 01/10/18 20:38 [From Thorazine] Review of Systems ROS Statement: Those systems with pertinent positive or pertinent negative responses have been documented in the HPI. ROS Other: All systems not noted in ROS Statement are negative. Past Medical History Past Medical History: Hyperlipidemia, Hypertension, Seizure Disorder, Thyroid Disorder Additional Past Medical History / Comment(s): Obesity History of Any Multi-Drug Resistant Organisms: None Reported Past Surgical History: Appendectomy Past Anesthesia/Blood Transfusion Reactions: No Reported Reaction Past Psychological History: Schizophrenia Smoking Status: Former smoker Past Alcohol Use History: None Reported Past Drug Use History: Marijuana - Past Family History Mother Family Medical History: No Reported History Father Family Medical History: No Reported History General Exam Limitations: no limitations Course Vital Signs 02/13/20 03:14 Temperature 102.7 F H Pulse Rate 91 Respiratory 18 Rate Blood Pressure 162/86 O2 Sat by Pulse 98 Oximetry Medical Decision Making - Lab Data Result diagrams: 02/13/20 03:37 02/13/20 03:37 Lab Results 02/13/20 02/13/20 02/13/20 Range/Units 03:37 03:37 03:37 WBC 7.4 (3.8-10.6) k/uL RBC 3.91 L (4.30-5.90) m/uL Hgb 12.8 L (13.0-17.5) gm/dL Hct 37.5 L (39.0-53.0) % MCV 96.1 (80.0-100.0) fL MCH 32.7 (25.0-35.0) pg MCHC 34.1 (31.0-37.0) g/dL RDW 15.4 (11.5-15.5) % Plt Count 178 (150-450) k/uL PT 10.6 (9.0-12.0) sec INR 1.0 (<1.2) APTT 26.3 (22.0-30.0) sec Sodium 131 L (137-145) mmol/L Potassium 4.7 (3.5-5.1) mmol/L Chloride 90 L (98-107) mmol/L Carbon Dioxide 29 (22-30) mmol/L Anion Gap 12 mmol/L BUN 12 (9-20) mg/dL Creatinine 0.92 (0.66-1.25) mg/dL Est GFR (CKD-EPI)AfAm >90 (>60 ml/min/1.73 sqM) Est GFR (CKD-EPI)NonAf 86 (>60 ml/min/1.73 sqM) Glucose 175 H (74-99) mg/dL Plasma Lactic Acid Mathew (0.7-2.0) mmol/L Calcium 9.2 (8.4-10.2) mg/dL Total Bilirubin 0.8 (0.2-1.3) mg/dL AST 19 (17-59) U/L ALT 17 (4-49) U/L Alkaline Phosphatase 45 (38-126) U/L Total Protein 6.7 (6.3-8.2) g/dL Albumin 4.0 (3.5-5.0) g/dL Urine Color Urine Appearance (Clear) Urine pH (5.0-8.0) Ur Specific [place] (1.001-1.035) Urine Protein (Negative) Urine Glucose (UA) (Negative) Urine Ketones (Negative) Urine Blood (Negative) Urine Nitrite (Negative) Urine Bilirubin (Negative) Urine Urobilinogen (<2.0) mg/dL Ur Leukocyte Esterase (Negative) Urine RBC (0-5) /hpf Urine WBC (0-5) /hpf Urine WBC Clumps (None) /hpf Ur Squamous Epith Cells (0-4) /hpf Urine Bacteria (None) /hpf Urine Yeast (Budding) (None) /hpf Influenza Type A RNA (Not Detectd) Influenza Type B (PCR) (Not Detectd) 02/13/20 02/13/20 02/13/20 Range/Units 03:37 03:37 03:37 WBC (3.8-10.6) k/uL RBC (4.30-5.90) m/uL Hgb (13.0-17.5) gm/dL Hct (39.0-53.0) % MCV (80.0-100.0) fL MCH (25.0-35.0) pg MCHC (31.0-37.0) g/dL RDW (11.5-15.5) % Plt Count (150-450) k/uL PT (9.0-12.0) sec INR (<1.2) APTT (22.0-30.0) sec Sodium (137-145) mmol/L Potassium (3.5-5.1) mmol/L Chloride (98-107) mmol/L Carbon Dioxide (22-30) mmol/L Anion Gap mmol/L BUN (9-20) mg/dL Creatinine (0.66-1.25) mg/dL Est GFR (CKD-EPI)AfAm (>60 ml/min/1.73 sqM) Est GFR (CKD-EPI)NonAf (>60 ml/min/1.73 sqM) Glucose (74-99) mg/dL Plasma Lactic Acid Mathew 3.6 H* (0.7-2.0) mmol/L Calcium (8.4-10.2) mg/dL Total Bilirubin (0.2-1.3) mg/dL AST (17-59) U/L ALT (4-49) U/L Alkaline Phosphatase (38-126) U/L Total Protein (6.3-8.2) g/dL Albumin (3.5-5.0) g/dL Urine Color Yellow Urine Appearance Turbid (Clear) Urine pH 6.5 (5.0-8.0) Ur Specific [place] 1.019 (1.001-1.035) Urine Protein 1+ H (Negative) Urine Glucose (UA) Negative (Negative) Urine Ketones Trace H (Negative) Urine Blood Small H (Negative) Urine Nitrite Negative (Negative) Urine Bilirubin Negative (Negative) Urine Urobilinogen <2.0 (<2.0) mg/dL Ur Leukocyte Esterase Large H (Negative) Urine RBC 9 H (0-5) /hpf Urine WBC >182 H (0-5) /hpf Urine WBC Clumps Many H (None) /hpf Ur Squamous Epith Cells 1 (0-4) /hpf Urine Bacteria Occasional H (None) /hpf Urine Yeast (Budding) Few H (None) /hpf Influenza Type A RNA Not Detected (Not Detectd) Influenza Type B (PCR) Not Detected (Not Detectd) Disposition Clinical Impression: Sepsis secondary to UTI Disposition: ADMITTED IP TO THIS HOSP Condition: Fair Referrals: Blas Rogers MD [Primary Care Provider] - 1-2 days Decision Time: 04:38
[2020-02-13 03:55] LABS: ALT 17 U/L (4-49); AST 19 U/L (17-59); African American GFR (CKD) >90 (>60 ml/min/1.73 sqM); Alkaline Phosphatase 45 U/L (38-126); Anion Gap 12 mmol/L; Blood Urea Nitrogen 12 mg/dL (9-20); Calcium 9.2 mg/dL (8.4-10.2); Carbon Dioxide 29 mmol/L (22-30); Chloride 90 mmol/L (98-107); Glucose 175 mg/dL (74-99); Non-African American GFR(CKD) 86 (>60 ml/min/1.73 sqM); Potassium 4.7 mmol/L (3.5-5.1); Sodium 131 mmol/L (137-145); Total Bilirubin 0.8 mg/dL (0.2-1.3); Total Protein 6.7 g/dL (6.3-8.2)
[2020-02-13 03:56] LABS: Partial Thromboplastin Time 26.3 sec (22.0-30.0); Prothrombin Time 10.6 sec (9.0-12.0)
[2020-02-13 04:11] LABS: HCT 37.5 % (39.0-53.0); HGB 12.8 gm/dL (13.0-17.5); MCH 32.7 pg (25.0-35.0); MCHC 34.1 g/dL (31.0-37.0); MCV 96.1 fL (80.0-100.0); Mean Platelet Volume 7.8; Platelet Count 178 k/uL (150-450); RBC 3.91 m/uL (4.30-5.90); RDW 15.4 % (11.5-15.5); WBC 7.4 k/uL (3.8-10.6)
[2020-02-13 04:14] LABS: Appearance,Urine Turbid (Clear); Bacteria,Urine Occasional /hpf; Bilirubin,Urine Negative (Negative); Blood,Urine Small (Negative); Budding Yeast,Urine Few /hpf; Color,Urine Yellow; Glucose,Urine (UA) Negative (Negative); Ketones,Urine Trace (Negative); Leukocyte Esterase,Urine Large (Negative); Nitrite,Urine Negative (Negative); PH, Urine 6.5 (5.0-8.0); Protein,Urine 1+ (Negative); RBC,Urine 9 /hpf (0-5); Specific Gravity,Urine 1.019 (1.001-1.035); Squamous Epithelial Cell,Urine 1 /hpf (0-4); Urobilinogen,Urine <2.0 mg/dL (<2.0); WBC,Urine >182 /hpf (0-5)
--- NOTE | 2020-02-13 04:20 | XR ---
EXAMINATION TYPE: XR chest 1V portable DATE OF EXAM: 02/13/2020 COMPARISON: January 12, 2018 HISTORY: Fever TECHNIQUE: FINDINGS: There is small linear density at the left lung base. There is no heart failure. There is no pulmonary consolidation. Heart size is normal. There are chest leads. IMPRESSION: Minimal subsegmental atelectasis left lung base. Overall no significant change compared t o old exam.
--- NOTE | 2020-02-13 04:23 | CT ---
EXAMINATION TYPE: CT brain wo con DATE OF EXAM: 02/13/2020 COMPARISON: 01/15/2018 HISTORY: Patient presents with AMS. CT DLP: 1149.4 mGycm Automated exposure control for dose reduction was used. There is cerebral cortical atrophy. There is no mass effect nor midline shift. There is no sign of in tracranial hemorrhage. The calvarium is intact. There is 5 mm hypodensity in the anterior right inter nal capsule. IMPRESSION: Cerebral atrophy and chronic small vessel ischemia. No acute intracranial abnormality. No change.
[2020-02-13] MEDS ORDERED: cefTRIAXone IN SWFI 1,000 MG/10 ML SYRINGE IVP STA (04:32)
[2020-02-13] MEDS ORDERED: ONDANSETRON 4 MG/2 ML VIAL IVP PRN (04:32)
[2020-02-13] MEDS ORDERED: NALOXONE 0.4 MG/ML 1 ML VIAL IV PRN (04:32)
[2020-02-13] MEDS ORDERED: SODIUM CHLORIDE 0.9% 1,000 ML IV SCH ×2 (04:45→09:15)
[2020-02-13] MEDS: SODIUM CHLORIDE 0.9% 500 ML 500 ML IV SCH (05:01)
[2020-02-13 05:24] LABS: Lymphocytes # (M) 0.52 k/uL (1.0-4.8); Monocytes # (M) 0.74 k/uL (0-1.0); Neutrophils # (M) 6.14 k/uL (1.3-7.7); Neutrophils % (M) 83 %; Nucleated Red Blood Cells 0 /100 WBC (0-0); Polychromasia Present; Total Cells Counted 100
[2020-02-13] MEDS ORDERED: AMMONIUM LACTATE 12% LOTION 225 GM BTL TOPICAL PRN (09:05)
[2020-02-13] MEDS ORDERED: LORATADINE 10 MG TAB PO PRN (09:05)
[2020-02-13] MEDS ORDERED: TRIAMCINOLONE ACET 0.1% OINTMENT 80 GM TUBE TOPICAL PRN (09:05)
[2020-02-13] MEDS: DIVALPROEX SPRINKLE 125 MG CAP.SPRINK PO SCH ×2 (09:46→21:04)
[2020-02-13] MEDS: LEVOTHYROXINE 25 MCG TAB PO SCH (09:46)
[2020-02-13] MEDS: METOPROLOL SUCCINATE (ER) 50 MG TAB.ER.24H PO SCH (09:46)
[2020-02-13] MEDS: PANTOPRAZOLE 40 MG/10 ML VIAL IV SCH (09:47)
[2020-02-13] MEDS: ACETAMINOPHEN TAB 325 MG TAB PO PRN ×2 (11:40→19:22)
[2020-02-13] MEDS: SODIUM CHLORIDE 0.9% 1,000 ML IV SCH ×2 (11:42→23:16)
[2020-02-13 12:30] LABS: Basophils % (A) 0 %; Eosinophils % (A) 0 %; HCT 34.5 % (39.0-53.0); HGB 11.6 gm/dL (13.0-17.5); Lymphocytes # (A) 0.3 k/uL (1.0-4.8); Lymphocytes % (A) 5 %; MCH 32.4 pg (25.0-35.0); MCHC 33.6 g/dL (31.0-37.0); MCV 96.2 fL (80.0-100.0); Mean Platelet Volume 8.2; Monocytes # (A) 0.6 k/uL (0-1.0); Monocytes % (A) 9 %; Neutrophils % (A) 81 %; Platelet Count 161 k/uL (150-450); RBC 3.59 m/uL (4.30-5.90); RDW 15.4 % (11.5-15.5); WBC 6.1 k/uL (3.8-10.6)
--- NOTE | 2020-02-13 13:41 | P.HPIM ---
History of Present Illness 69-year-old male assisted resident came in because of dysuria found to have normal urine. Patient was a pretty confused as wellcomputed tomography scan of the head is within normal limits patient is alert oriented 3 were to provide me history patient appears to some psychiatric issues and some residual left-sided weakness.anticoagulation denied any significant cough chest x-ray showed some atelectasis. Patient apparently did complain of abdominal pain ER although he denied any such symptoms immediately denied any diarrhea. Patient is found to have lactic acidosis patient received 1 L bolus with lactic acid went up again to 3.7 give him 1 more liter bolus patient will continued on IV fluids at 100 mL per hour per hour after that Review of Systems REVIEW OF SYSTEMS: CONSTITUTIONAL: No fever, no malaise, no fatigue. HEENT: No recent visual problems or hearing problems. Denied any sore throat. CARDIOVASCULAR: No chest pain, orthopnea, PND, no palpitations, no syncope. PULMONARY: No shortness of breath, no cough, no hemoptysis. GASTROINTESTINAL: No diarrhea, no nausea, no vomiting, no abdominal pain. NEUROLOGICAL: No headaches, no weakness, no numbness. HEMATOLOGICAL: Denies any bleeding or petechiae. GENITOURINARY:as mentioned in HPI MUSCULOSKELETAL/RHEUMATOLOGICAL: Denies any joint pain, swelling, or any muscle pain. ENDOCRINE: Denies any polyuria or polydipsia. The rest of the 14-point review of systems is negative. Past Medical History Past Medical History: Diabetes Mellitus, Hyperlipidemia, Hypertension, Seizure Disorder, Skin Disorder, Sleep Apnea/CPAP/BIPAP, Thyroid Disorder Additional Past Medical History / Comment(s): 2016 CVA with L sided weakness, muscle weakness, NIDDM type II, bilateral leg/back pain, last seizure in 2000, NOHELIA without device, hypothyroird, bilateral lower extremity edema, psoriasis History of Any Multi-Drug Resistant Organisms: None Reported Past Surgical History: Appendectomy, Bowel Resection Additional Past Surgical History / Comment(s): Pt states he has had bowel surgery in the past, vasectomy, circumcism. Past Anesthesia/Blood Transfusion Reactions: No Reported Reaction Smoking Status: Former smoker - Past Family History Mother Family Medical History: No Reported History Additional Family Medical History / Comment(s): Pt states mother was healthy Father Family Medical History: No Reported History Additional Family Medical History / Comment(s): Pt states father was healthy Medications and Allergies Home Medications Medication Instructions Recorded Confirmed Type Benztropine Mesylate 1 mg PO DAILY 12/15/15 02/13/20 History Levothyroxine Sodium [Synthroid] 25 mcg PO DAILY 12/15/15 02/13/20 History Lisinopril [Zestril] 20 mg PO BID 12/15/15 02/13/20 History Acetaminophen Tab [Tylenol] 650 mg PO Q4H PRN MDD 4000 mg 01/10/18 02/13/20 History Aspirin [Children's Aspirin] 81 mg PO HS 01/10/18 02/13/20 History Atorvastatin [Lipitor] 20 mg PO HS 01/10/18 02/13/20 History Benztropine Mesylate [Cogentin] 2 mg PO HS 01/10/18 02/13/20 History Cholecalciferol [Vitamin D3 (25 1,000 unit PO HS 01/10/18 02/13/20 History Mcg = 1000 Iu)] Lactulose 20 gm PO DAILY 01/10/18 02/13/20 History Loratadine 10 mg PO DAILY PRN 01/10/18 02/13/20 History Melatonin 3 mg PO HS 01/10/18 02/13/20 History Metoprolol Succinate (ER) [Toprol 50 mg PO DAILY 01/10/18 02/13/20 History XL] Polyethylene Glycol 3350 [Miralax] 17 gm PO HS 01/10/18 02/13/20 History Potassium Chloride 8 meq PO BID 01/10/18 02/13/20 History Ammonium Lactate Lotion 1 applic TOPICAL QID PRN 02/13/20 02/13/20 History [Lac-Hydrin 12% Lotion] Divalproex Sodium [Depakote] 375 mg PO Q12H 02/13/20 02/13/20 History Furosemide [Lasix] 60 mg PO DAILY 02/13/20 02/13/20 History Gabapentin [Neurontin] 300 mg PO HS 02/13/20 02/13/20 History HYDROcodone/APAP 5-325MG [[place] 1 tab PO TID 02/13/20 02/13/20 History 5-325] LORazepam [Ativan] 0.5 mg PO HS 02/13/20 02/13/20 History Multivit-Min/FA/Lycopen/Lutein 1 tab PO HS 02/13/20 02/13/20 History [Centrum Silver Tablet] Nystatin 100,000Unit/gm Cream 1 applic TOPICAL BID 02/13/20 02/13/20 History [Mycostatin Cream] Triamcinolone 0.1% Ointment 1 applic TOPICAL TID PRN 02/13/20 02/13/20 History [Kenalog] metFORMIN HCL 1,000 mg PO BID 02/13/20 02/13/20 History risperiDONE 3 mg PO BID 02/13/20 02/13/20 History Allergies Allergy/AdvReac Type Severity Reaction Status Date / Time chlorpromazine HCl Allergy Unknown Verified 02/13/20 07:11 [From Thorazine] Physical Exam Vitals: Vital Signs Temp Pulse Pulse Resp BP BP Pulse Ox 02/13/20 12:58 101.8 F H 78 32 H 135/78 96 02/13/20 08:00 18 02/13/20 07:10 98.5 F 80 20 128/73 99 02/13/20 04:50 99.8 F H 92 18 148/90 98 02/13/20 03:14 102.7 F H 91 18 162/86 98 Intake and Output 02/12/20 02/13/20 02/13/20 22:59 06:59 14:59 Other: Weight 127.006 kg 127.006 kg PHYSICAL EXAMINATION: GENERAL: The patient is alert and oriented x3, not in any acute distress. Well developed, well nourished. HEENT: Pupils are round and equally reacting to light. EOMI. No scleral icterus. No conjunctival pallor. Normocephalic, atraumatic. No pharyngeal erythema. No thyromegaly. CARDIOVASCULAR: S1 and S2 present. No murmurs, rubs, or gallops. PULMONARY: Chest is clear to auscultation, no wheezing or crackles. ABDOMEN: Soft, nontender, nondistended, normoactive bowel sounds. No palpable organomegaly. MUSCULOSKELETAL: No joint swelling or deformity. EXTREMITIES: No cyanosis, clubbing, or pedal edema. NEUROLOGICAL: Gross neurological examination did not reveal anynew focal deficits. there is probably some residual weakness on the left side from the previous stroke SKIN: No rashes. Results CBC & Chem 7: 02/13/20 11:38 02/13/20 03:37 Labs: Abnormal Lab Results - Last 24 Hours (Table) 02/13/20 02/13/20 02/13/20 Range/Units 03:37 03:37 03:37 RBC 3.91 L (4.30-5.90) m/uL Hgb 12.8 L (13.0-17.5) gm/dL Hct 37.5 L (39.0-53.0) % Lymphocytes # (1.0-4.8) k/uL Lymphocytes # (Manual) 0.52 L (1.0-4.8) k/uL Sodium 131 L (137-145) mmol/L Chloride 90 L (98-107) mmol/L Glucose 175 H (74-99) mg/dL Plasma Lactic Acid Mathew 3.6 H* (0.7-2.0) mmol/L Urine Protein (Negative) Urine Ketones (Negative) Urine Blood (Negative) Ur Leukocyte Esterase (Negative) Urine RBC (0-5) /hpf Urine WBC (0-5) /hpf Urine WBC Clumps (None) /hpf Urine Bacteria (None) /hpf Urine Yeast (Budding) (None) /hpf 02/13/20 02/13/20 02/13/20 Range/Units 03:37 07:45 11:38 RBC 3.59 L (4.30-5.90) m/uL Hgb 11.6 L (13.0-17.5) gm/dL Hct 34.5 L (39.0-53.0) % Lymphocytes # 0.3 L (1.0-4.8) k/uL Lymphocytes # (Manual) (1.0-4.8) k/uL Sodium (137-145) mmol/L Chloride (98-107) mmol/L Glucose (74-99) mg/dL Plasma Lactic Acid Mathew 2.9 H* (0.7-2.0) mmol/L Urine Protein 1+ H (Negative) Urine Ketones Trace H (Negative) Urine Blood Small H (Negative) Ur Leukocyte Esterase Large H (Negative) Urine RBC 9 H (0-5) /hpf Urine WBC >182 H (0-5) /hpf Urine WBC Clumps Many H (None) /hpf Urine Bacteria Occasional H (None) /hpf Urine Yeast (Budding) Few H (None) /hpf 02/13/20 Range/Units 11:47 RBC (4.30-5.90) m/uL Hgb (13.0-17.5) gm/dL Hct (39.0-53.0) % Lymphocytes # (1.0-4.8) k/uL Lymphocytes # (Manual) (1.0-4.8) k/uL Sodium (137-145) mmol/L Chloride (98-107) mmol/L Glucose (74-99) mg/dL Plasma Lactic Acid Mathew 3.8 H* (0.7-2.0) mmol/L Urine Protein (Negative) Urine Ketones (Negative) Urine Blood (Negative) Ur Leukocyte Esterase (Negative) Urine RBC (0-5) /hpf Urine WBC (0-5) /hpf Urine WBC Clumps (None) /hpf Urine Bacteria (None) /hpf Urine Yeast (Budding) (None) /hpf Microbiology - Last 24 Hours (Table) 02/13/20 03:37 Urine Culture - Preliminary Urine,Clean Catch Thrombosis Risk Factor Assmnt - Choose All That Apply Any of the Below Risk Factors Present?: Yes Each Factor Represents 1 point: Obesity (BMI >25), Sepsis (< 1month), Serious lung disease incl. pneumonia (< 1month) Other Risk Factors: Yes Each Risk Factor Represents 2 Points: Age 61-74 years Other congenital or acquired thrombophilia - If yes, enter type in comment: No Thrombosis Risk Factor Assessment Total Risk Factor Score: 5 Thrombosis Risk Factor Assessment Level: High Risk Assessment and Plan Plan: -severe sepsis: Secondary to urinary tract infection patient will be continued on Rocephin I reviewed his previous urine cultures I don't have any other organisms on the previous urine cultures.laboratory and IV fluids as mentioned Y fluid resuscitation as mentioned above awaiting urine cultures blood cultures were obtained as well -hypertension -hyperlipidemia -Seizure disorder -Hypothyroidism -Sleep apnea patient uses CPAP machine -schizophrenia for above-mentioned chronic medical problems patient will be resumed and continued on appropriate home medications
[2020-02-13] MEDS ORDERED: SODIUM CHLORIDE 0.9% 1,000 ML IV ONE (15:39)
[2020-02-13 20:34] LABS: Glucose,Whole Blood 202 mg/dL (75-99)
[2020-02-13] MEDS ORDERED: LISINOPRIL 20 MG TAB PO SCH (21:00)
[2020-02-13] MEDS ORDERED: LORazepam 0.5 MG TAB PO SCH (21:00)
[2020-02-13] MEDS ORDERED: CHOLECALCIFEROL 1,000 UNIT TAB PO SCH (21:00)
[2020-02-13] MEDS: MULTIVITAMINS, THERA 1 EACH TAB PO SCH (21:02)
[2020-02-13] MEDS: GABAPENTIN 300 MG CAP PO SCH (21:02)
[2020-02-13] MEDS: risperiDONE 1 MG TAB PO SCH (21:02)
[2020-02-13] MEDS: ASPIRIN 81 MG PO SCH (21:02)
[2020-02-13] MEDS: CHOLECALCIFEROL 1,000 UNIT TAB PO SCH (21:02)
[2020-02-13] MEDS: ATORVASTATIN 20 MG TAB PO SCH (21:02)
[2020-02-13] MEDS: MELATONIN 3 MG TABLET PO SCH (21:03)
[2020-02-13] MEDS: INSULIN ASPART (NovoLOG) 100 UNIT/ML VIAL SQ SCH (21:04)
[2020-02-13] MEDS: NYSTATIN 100,000UNIT/GM CREAM 30 GM TUBE TOPICAL SCH (21:08)
[2020-02-13] MEDS: POLYETHYLENE GLYCOL 3350 17 GM POWD.PACK PO SCH (21:09)
[2020-02-13] MEDS: BENZTROPINE MESYLATE 1 MG TAB PO SCH (21:09)
[2020-02-14] MEDS ORDERED: IOPAMIDOL CONTRAST (ORAL USE) VIAL PO PRN ×2 (00:23→15:06)
--- NOTE | 2020-02-14 00:23 | P.CONS ---
History of Present Illness - Reason for Consult Consult date: 02/13/20 elevated lactic acid/UTI Requesting physician: Leanna Doll - Chief Complaint Abd pain x 1 day - History of Present Illness Patient is a 79-year male who was brought into the ER early this morning for evaluation of fever and abdominal pain patient who is a resident of a local group home EMS was called in for the patient having decreased level of consciousness and was complaining of some abdominal pain with no clear history of any nausea no vomiting or any diarrhea patient on arrival to the ER noticed to have a fever of 102 F patient did have elevated lactic acid his white count has been normal creatinine was 0.9 patient did have a positive UA with large leukocyte esterase more than 100 WBC influenza and RSV PCR was negative patient did have a chest x-ray minimal subsegmental atelectasis patient has been diagnosed with a urinary tract infection he was started on Rocephin and admitted to hospital infectious disease was consulted for further recommendation regarding antibiotic therapy most information has been obtained from review of the chart as the patient himself is not a good historian. 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 Past Anesthesia/Blood Transfusion Reactions: No Reported Reaction Smoking Status: Former smoker - Past Family History Mother Family Medical History: No Reported History Additional Family Medical History / Comment(s): Pt states mother was healthy Father Family Medical History: No Reported History Additional Family Medical History / Comment(s): Pt states father was healthy Medications and Allergies Home Medications Medication Instructions Recorded Confirmed Type Benztropine Mesylate 1 mg PO DAILY 12/15/15 02/13/20 History Levothyroxine Sodium [Synthroid] 25 mcg PO DAILY 12/15/15 02/13/20 History Lisinopril [Zestril] 20 mg PO BID 12/15/15 02/13/20 History Acetaminophen Tab [Tylenol] 650 mg PO Q4H PRN MDD 4000 mg 01/10/18 02/13/20 History Aspirin [Children's Aspirin] 81 mg PO HS 01/10/18 02/13/20 History Atorvastatin [Lipitor] 20 mg PO HS 01/10/18 02/13/20 History Benztropine Mesylate [Cogentin] 2 mg PO HS 01/10/18 02/13/20 History Cholecalciferol [Vitamin D3 (25 1,000 unit PO HS 01/10/18 02/13/20 History Mcg = 1000 Iu)] Lactulose 20 gm PO DAILY 01/10/18 02/13/20 History Loratadine 10 mg PO DAILY PRN 01/10/18 02/13/20 History Melatonin 3 mg PO HS 01/10/18 02/13/20 History Metoprolol Succinate (ER) [Toprol 50 mg PO DAILY 01/10/18 02/13/20 History XL] Polyethylene Glycol 3350 [Miralax] 17 gm PO HS 01/10/18 02/13/20 History Potassium Chloride 8 meq PO BID 01/10/18 02/13/20 History Ammonium Lactate Lotion 1 applic TOPICAL QID PRN 02/13/20 02/13/20 History [Lac-Hydrin 12% Lotion] Divalproex Sodium [Depakote] 375 mg PO Q12H 02/13/20 02/13/20 History Furosemide [Lasix] 60 mg PO DAILY 02/13/20 02/13/20 History Gabapentin [Neurontin] 300 mg PO HS 02/13/20 02/13/20 History HYDROcodone/APAP 5-325MG [Putney 1 tab PO TID 02/13/20 02/13/20 History 5-325] LORazepam [Ativan] 0.5 mg PO HS 02/13/20 02/13/20 History Multivit-Min/FA/Lycopen/Lutein 1 tab PO HS 02/13/20 02/13/20 History [Centrum Silver Tablet] Nystatin 100,000Unit/gm Cream 1 applic TOPICAL BID 02/13/20 02/13/20 History [Mycostatin Cream] Triamcinolone 0.1% Ointment 1 applic TOPICAL TID PRN 02/13/20 02/13/20 History [Kenalog] metFORMIN HCL 1,000 mg PO BID 02/13/20 02/13/20 History risperiDONE 3 mg PO BID 02/13/20 02/13/20 History Allergies Allergy/AdvReac Type Severity Reaction Status Date / Time chlorpromazine HCl Allergy Unknown Verified 02/13/20 07:11 [From Thorazine] Physical Exam Vitals: Vital Signs Temp Pulse Pulse Resp BP BP Pulse Ox 02/13/20 12:58 101.8 F H 78 32 H 135/78 96 02/13/20 08:00 18 02/13/20 07:10 98.5 F 80 20 128/73 99 02/13/20 04:50 99.8 F H 92 18 148/90 98 02/13/20 03:14 102.7 F H 91 18 162/86 98 Intake and Output 02/12/20 02/13/20 02/13/20 22:59 06:59 14:59 Other: Weight 127.006 kg 127.006 kg GENERAL DESCRIPTION: Elderly male lying in bed, no distress. No tachypnea or accessory muscle of respiration use. HEENT: Shows Pallor , no scleral icterus. Oral mucous membrane is dry. NECK: Trachea central, no thyromegaly. LUNGS: Unlabored breathing. Decreased breath sounds at bases. No wheeze or crackle. HEART: S1, S2, regular rate and rhythm. ABDOMEN: Soft, no tenderness , no guarding or rigidity EXTREMITIES: No edema of feet. SKIN: No rash, no masses palpable. NEUROLOGICAL: The patient is awake, alert, oriented x2, mood and affect normal Results CBC & Chem 7: 02/13/20 11:38 02/13/20 03:37 Labs: Abnormal Lab Results - Last 24 Hours (Table) 02/13/20 02/13/20 02/13/20 Range/Units 03:37 03:37 03:37 RBC 3.91 L (4.30-5.90) m/uL Hgb 12.8 L (13.0-17.5) gm/dL Hct 37.5 L (39.0-53.0) % Lymphocytes # (1.0-4.8) k/uL Lymphocytes # (Manual) 0.52 L (1.0-4.8) k/uL Sodium 131 L (137-145) mmol/L Chloride 90 L (98-107) mmol/L Glucose 175 H (74-99) mg/dL Plasma Lactic Acid Mathew 3.6 H* (0.7-2.0) mmol/L Urine Protein (Negative) Urine Ketones (Negative) Urine Blood (Negative) Ur Leukocyte Esterase (Negative) Urine RBC (0-5) /hpf Urine WBC (0-5) /hpf Urine WBC Clumps (None) /hpf Urine Bacteria (None) /hpf Urine Yeast (Budding) (None) /hpf 02/13/20 02/13/20 02/13/20 Range/Units 03:37 07:45 11:38 RBC 3.59 L (4.30-5.90) m/uL Hgb 11.6 L (13.0-17.5) gm/dL Hct 34.5 L (39.0-53.0) % Lymphocytes # 0.3 L (1.0-4.8) k/uL Lymphocytes # (Manual) (1.0-4.8) k/uL Sodium (137-145) mmol/L Chloride (98-107) mmol/L Glucose (74-99) mg/dL Plasma Lactic Acid Mathew 2.9 H* (0.7-2.0) mmol/L Urine Protein 1+ H (Negative) Urine Ketones Trace H (Negative) Urine Blood Small H (Negative) Ur Leukocyte Esterase Large H (Negative) Urine RBC 9 H (0-5) /hpf Urine WBC >182 H (0-5) /hpf Urine WBC Clumps Many H (None) /hpf Urine Bacteria Occasional H (None) /hpf Urine Yeast (Budding) Few H (None) /hpf 02/13/20 Range/Units 11:47 RBC (4.30-5.90) m/uL Hgb (13.0-17.5) gm/dL Hct (39.0-53.0) % Lymphocytes # (1.0-4.8) k/uL Lymphocytes # (Manual) (1.0-4.8) k/uL Sodium (137-145) mmol/L Chloride (98-107) mmol/L Glucose (74-99) mg/dL Plasma Lactic Acid Mathew 3.8 H* (0.7-2.0) mmol/L Urine Protein (Negative) Urine Ketones (Negative) Urine Blood (Negative) Ur Leukocyte Esterase (Negative) Urine RBC (0-5) /hpf Urine WBC (0-5) /hpf Urine WBC Clumps (None) /hpf Urine Bacteria (None) /hpf Urine Yeast (Budding) (None) /hpf Microbiology - Last 24 Hours (Table) 02/13/20 03:37 Urine Culture - Preliminary Urine,Clean Catch Assessment and Plan Assessment: patient being admitted hospital with fever and mental status changes with patient who did complain of some abdominal pain patient did have a positive UA with concern for possible urine tract infection however other intra-abdominal pathology not entirely excluded in view of significant elevated lactic acid on presentation which was three-point 6 repeat was 4.1. (1) UTI (urinary tract infection) Current Visit: Yes Status: Acute Code(s): N39.0 - URINARY TRACT INFECTION, SITE NOT SPECIFIED SNOMED Code(s): 10634364 (2) Lactic acidosis Current Visit: Yes Status: Acute Code(s): E87.2 - ACIDOSIS SNOMED Code(s): 65021707 Plan: 1-we will obtain a CT of abdominal pelvis with oral contrast 2-Rocephin 1 g daily to continue 3-IV fluids We will follow on clinical condition and cultures to further adjust medication if needed Thank you for this consultation we will follow the patient along with you Time with Patient: Greater than 30
[2020-02-14] MEDS: ACETAMINOPHEN TAB 325 MG TAB PO PRN ×3 (04:58→20:57)
[2020-02-14] MEDS: LEVOTHYROXINE 25 MCG TAB PO SCH (06:19)
[2020-02-14] MEDS: BENZTROPINE MESYLATE 1 MG TAB PO SCH ×2 (07:07→20:57)
[2020-02-14] MEDS: risperiDONE 1 MG TAB PO SCH ×2 (07:07→20:56)
[2020-02-14] MEDS: DIVALPROEX SPRINKLE 125 MG CAP.SPRINK PO SCH ×2 (07:07→20:56)
[2020-02-14] MEDS: LISINOPRIL 20 MG TAB PO SCH (07:07)
[2020-02-14] MEDS: METOPROLOL SUCCINATE (ER) 50 MG TAB.ER.24H PO SCH (07:07)
[2020-02-14] MEDS: SODIUM CHLORIDE 0.9% 1,000 ML IV SCH (07:08)
[2020-02-14] MEDS: NYSTATIN 100,000UNIT/GM CREAM 30 GM TUBE TOPICAL SCH ×2 (07:08→20:59)
[2020-02-14 07:09] LABS: Glucose,Whole Blood 193 mg/dL (75-99)
[2020-02-14] MEDS: INSULIN ASPART (NovoLOG) 100 UNIT/ML VIAL SQ SCH ×4 (07:09→20:59)
[2020-02-14] MEDS: PANTOPRAZOLE 40 MG/10 ML VIAL IV SCH (07:09)
[2020-02-14 08:48] LABS: HCT 30.6 % (39.0-53.0); HGB 10.3 gm/dL (13.0-17.5); MCH 32.6 pg (25.0-35.0); MCHC 33.5 g/dL (31.0-37.0); MCV 97.2 fL (80.0-100.0); Mean Platelet Volume 7.9; Platelet Count 155 k/uL (150-450); RBC 3.15 m/uL (4.30-5.90); RDW 15.3 % (11.5-15.5); WBC 6.2 k/uL (3.8-10.6)
[2020-02-14 09:02] LABS: African American GFR (CKD) >90 (>60 ml/min/1.73 sqM); Anion Gap 8 mmol/L; Blood Urea Nitrogen 12 mg/dL (9-20); Calcium 8.2 mg/dL (8.4-10.2); Carbon Dioxide 26 mmol/L (22-30); Chloride 101 mmol/L (98-107); Glucose 161 mg/dL (74-99); Non-African American GFR(CKD) >90 (>60 ml/min/1.73 sqM); Sodium 135 mmol/L (137-145)
--- NOTE | 2020-02-14 11:08 | US ---
EXAMINATION TYPE: US abdomen complete DATE OF EXAM: 02/14/2020 COMPARISON: CT 01/26/2017 CLINICAL HISTORY: Fever , UTI. Difficult and limited exam due to patient body habitus and patient con dition. Unable to take a deep breath in and hold it, unable to roll onto his side. EXAM MEASUREMENTS: Liver Length: 20.1 cm Gallbladder Wall: 0.2 cm CBD: 0.4 cm Spleen: 15.4 cm Right Kidney: 11.2 x 6.9 x 5.5 cm Left Kidney: 12.8 x 6.2 x 6.7 cm Pancreas: Obscured by bowel gas Liver: Enlarged. There is increased echogenicity of the hepatic parenchyma with diminished visualizat ion of the portal triads most commonly relating to hepatic steatosis and limiting evaluation for unde rlying hepatic masses. Gallbladder: Stones visualized Evidence for sonographic Jaimes's sign: No CBD: wnl Spleen: Enlarged Right Kidney: No hydronephrosis. Cystic area upper pole measuring 1.2 cm Left Kidney: Possible mild amount of hydronephrosis. Possible cystic area visualized measuring 2.0 c m mid pole Upper IVC: wnl Abd Aorta: Proximal portion appears ectatic, mid and distal portion obscured by bowel gas The liver is echogenic and enlarged. Common bile duct is unremarkable. The visualized portions of t he pancreas are homogenous. The spleen is enlarged. Kidneys are symmetric. IMPRESSION: 1. Sonographic findings most commonly related to hepatic steatosis. Correlate with liver function isidoro ts. 2. Hepatosplenomegaly. 3. Simple appearing benign right renal cyst and probable additional left renal cyst. No hydronephrosi s of either kidney. 4. Cholelithiasis without sonographic evidence of acute cholecystitis.
[2020-02-14 11:38] LABS: Glucose,Whole Blood 148 mg/dL (75-99)
--- NOTE | 2020-02-14 12:11 | P.PN ---
Subjective Progress Note Date: 02/14/20 Principal diagnosis: 69-year-old male [facility] resident came in because of dysuria found to have normal urine. Patient was a pretty confused as wellcomputed tomography scan of the head is within normal limits patient is alert oriented 3 were to provide me history patient appears to some psychiatric issues and some residual left-sided weakness.anticoagulation denied any significant cough chest x-ray showed some atelectasis. Patient apparently did complain of abdominal pain ER although he denied any such symptoms immediately denied any diarrhea. Patient is found to have lactic acidosis patient received 1 L bolus with lactic acid went up again to 3.7 give him 1 more liter bolus patient will continued on IV fluids at 100 mL per hour per hour after that 02/14/2020 Patient is seen and evaluated in follow-up today quite lethargic but arousable. Patient underwent abdominal ultrasound today showing findings most commonly related to hepatic steatosis, hepatosplenomegaly, simple appearing benign right renal cyst and probable additional left renal cyst with no hydronephrosis of either kidney with some cholelithiasis with no evidence of acute cholecystitis. Currently patient is denying any abdominal pain. No reports of chest pain, shortness of breath, or palpitations. And is afebrile. No reports of nausea or vomiting and patient is tolerating diet. Objective - Vital Signs Vital signs: Vital Signs Temp 98.4 F 02/14/20 06:18 Pulse 78 02/14/20 04:30 Resp 32 H 02/14/20 04:30 BP 143/82 02/14/20 04:30 Pulse Ox 93 L 02/14/20 04:30 Intake & Output 02/13/20 02/14/20 02/14/20 18:59 06:59 18:59 Intake Total 200 Balance 200 Weight 127.006 kg Intake: Oral 200 Other: Voiding Method Urinal # Voids 10 4 3 - Exam GENERAL: The patient is asleep but arousable, alert and oriented x3, not in any acute distress. Well developed, well nourished. HEENT: Pupils are round and equally reacting to light. EOMI. No scleral icterus. No conjunctival pallor. Normocephalic, atraumatic. No pharyngeal erythema. No thyromegaly. CARDIOVASCULAR: S1 and S2 present. No murmurs, rubs, or gallops. PULMONARY: Chest is clear to auscultation, no wheezing or crackles. ABDOMEN: Soft, obese, nontender, nondistended, normoactive bowel sounds. No palpable organomegaly. MUSCULOSKELETAL: No joint swelling or deformity. EXTREMITIES: No cyanosis, clubbing, or pedal edema. NEUROLOGICAL: Gross neurological examination did not reveal any new focal deficits. there is probably some residual weakness on the left side from the previous stroke SKIN: No rashes. - Labs CBC & Chem 7: 02/14/20 07:53 02/14/20 07:53 Labs: Abnormal Lab Results - Last 24 Hours (Table) 02/13/20 02/13/20 02/13/20 Range/Units 11:38 11:47 15:55 RBC 3.59 L (4.30-5.90) m/uL Hgb 11.6 L (13.0-17.5) gm/dL Hct 34.5 L (39.0-53.0) % Lymphocytes # 0.3 L (1.0-4.8) k/uL Sodium (137-145) mmol/L Glucose (74-99) mg/dL POC Glucose (mg/dL) (75-99) mg/dL Plasma Lactic Acid Mathew 3.8 H* 4.1 H* (0.7-2.0) mmol/L Calcium (8.4-10.2) mg/dL 02/13/20 02/14/20 02/14/20 Range/Units 20:17 07:07 07:53 RBC 3.15 L (4.30-5.90) m/uL Hgb 10.3 L (13.0-17.5) gm/dL Hct 30.6 L (39.0-53.0) % Lymphocytes # (1.0-4.8) k/uL Sodium (137-145) mmol/L Glucose (74-99) mg/dL POC Glucose (mg/dL) 202 H 193 H (75-99) mg/dL Plasma Lactic Acid Mathew (0.7-2.0) mmol/L Calcium (8.4-10.2) mg/dL 02/14/20 02/14/20 Range/Units 07:53 11:36 RBC (4.30-5.90) m/uL Hgb (13.0-17.5) gm/dL Hct (39.0-53.0) % Lymphocytes # (1.0-4.8) k/uL Sodium 135 L (137-145) mmol/L Glucose 161 H (74-99) mg/dL POC Glucose (mg/dL) 148 H (75-99) mg/dL Plasma Lactic Acid Mathew (0.7-2.0) mmol/L Calcium 8.2 L (8.4-10.2) mg/dL Microbiology - Last 24 Hours (Table) 02/13/20 04:50 Blood Culture - Preliminary Blood No Growth after 24 hours 02/13/20 03:37 Blood Culture - Preliminary Blood No Growth after 24 hours 02/13/20 03:37 Urine Culture - Preliminary Urine,Clean Catch Assessment and Plan Assessment: -severe sepsis: Secondary to urinary tract infection: Patient is maintained on IV Rocephin and will continue at this time. Awaiting urine cultures to finalize. -hypertension -hyperlipidemia -Seizure disorder -Hypothyroidism -Sleep apnea patient uses CPAP machine -schizophrenia Plan: Continue with current medications, management, and symptomatic treatment. Avoid narcotics. Patient remains on IV Rocephin and will continue at this time until waiting for urine cultures to finalize. Infectious disease is following. Lactic acid has improved and patient is eating and drinking and will cut down IV fluids at this time. Further recommendations to follow. Case management and social work are following as patient is a resident at [facility]. Possible discharge in 24-48 hours.
[2020-02-14 12:26] LABS: ALT 16 U/L (4-49); AST 20 U/L (17-59); Alkaline Phosphatase 37 U/L (38-126)
--- NOTE | 2020-02-14 13:29 | CDI ---
Documentation Clarification Form Date: 02/14/2020 01:18:24 PM From: Lorena Gerard RN, CCDS Admit Date: 02/14/2020 10:23:00 AM Patient Name: James Choi Visit Number: [id number] ATTENTION: The Clinical Documentation Specialists (CDI) and [facility] Coding Staff appreciate your assistance in clarifying documentation. Please respond to the clarification below the line at the bottom and electronically sign. The CDI & [facility] Coding staff will review the response and follow-up if needed. Please note: Queries are made part of the Legal Health Record. If you have any questions, please contact the author of this message via ITS. Dr. London Patten Altered Mental Status was documented in the EC note and confusion in the Attending notes and requires further specificity. History/Risk Factors: Schizophrenia, DM 2, Hypothyroidism, HX of CVA Clinical Indicators: 02/12 ED Note: "Altered mental status" 02/12 & 02/13 Attending H&P and progress note: "Patient was a pretty confused as well computed tomography scan of the head is within normal limits patient is alert oriented 3 were to provide me history patient appears to some psychiatric issues. Severe sepsis with UTI" 02/12-02/13 Labs: NA+ 131/135, Glucose 202/148, U/A: + 02/12 CXR:"Minimal subsegmental atelectasis left lung base. Overall no significant change compared to old exam. 02/12 CT Brain: "Cerebral atrophy and chronic small vessel ischemia. No acute intracranial abnormality. No change." Treatment: Congentin 2 mg PO Q HS Depakote 375g PO Q 12 hrs Neurontin 300 mg PO Q hs Reseridal 3 mg PO BID Rocephin 1 gm IVPB Q 24 hrs 1 L 0.9% NS IVF Bolus followed by 100 cc/hr x 1L In your professional opinion, please clarify the etiology of the Altered Mental Status, if known. Delirium (specify cause): Metabolic Encephalopathy (specify Type and Underlying Medical Illness) Other condition (please specify) Unable to determine (Last Revision: February 2018) MTDD
[2020-02-14] MEDS: PIPERACILLIN-TAZOBACTAM 3.375 GM in SODIUM CHLORIDE 0.9% 100 ML IVPB SCH (15:22)
[2020-02-14 16:37] LABS: Glucose,Whole Blood 143 mg/dL (75-99)
--- NOTE | 2020-02-14 17:22 | CT ---
EXAMINATION TYPE: CT abdomen pelvis wo con DATE OF EXAM: 02/14/2020 COMPARISON: None HISTORY: Abdominal pain and fever. CT DLP: 1576.2 mGycm Automated exposure control for dose reduction was used. Multiple axial sections were obtained from the diaphragm to the floor the pelvis with oral contrast o nly. There is mild pleural thickening at the posterior lung bases. There is mild subsegmental atelectasis at the lung bases. Heart size is normal. There is no pericardial effusion. Liver spleen pancreas appear normal. Bile ducts are not dilated. There is only multiple calcified gal lstones. Gallbladder is contracted. Stomach appears intact. There is no adrenal mass. There is large irregular calculus in the left kidney that measures 3.7 x 1 cm. There is mild ectasia of the upper pole calyces of the left kidney. Ureters are not dilated. Ther e is probably a 2 mm calculus in the right kidney. There is no retroperitoneal adenopathy. Bladder di stends smoothly. There is no inguinal hernia. There is no evidence of a pelvic mass. There is no free fluid in the pelvis. There is no mesenteric e hakeem. There is no ascites or free air. There is no sign of a bowel obstruction. Lumbar spine is intac t. Bony pelvis appears intact. IMPRESSION: Large left renal calculus. Small right renal calculus. No obstructing calculus seen. Mild upper pole caliectasis could relate to previous episode of obstruction.
[2020-02-14 20:24] LABS: Glucose,Whole Blood 191 mg/dL (75-99)
[2020-02-14] MEDS: ASPIRIN 81 MG PO SCH (20:56)
[2020-02-14] MEDS: ATORVASTATIN 20 MG TAB PO SCH (20:56)
[2020-02-14] MEDS: GABAPENTIN 300 MG CAP PO SCH (20:56)
[2020-02-14] MEDS: CHOLECALCIFEROL 1,000 UNIT TAB PO SCH (20:57)
[2020-02-14] MEDS: POLYETHYLENE GLYCOL 3350 17 GM POWD.PACK PO SCH (20:57)
[2020-02-14] MEDS: MELATONIN 3 MG TABLET PO SCH (20:57)
[2020-02-14] MEDS: MULTIVITAMINS, THERA 1 EACH TAB PO SCH (20:57)
[2020-02-14 21:08] VITALS: RESP 32
--- NOTE | 2020-02-14 22:52 | PN ---
PROGRESS NOTE DATE OF SERVICE: 02/14/2020 REASON FOR FOLLOWUP: Complicated urinary tract infection. INTERVAL HISTORY: The patient was seen on rounds early this afternoon. The patient did have a fever early this morning of 101.6. He was also noted to be slightly sleepy and lethargic this morning; hence CT could not be performed, but subsequently the patient seemed to be more awake and alert. He was breathing comfortably. He denied having any chest pain or any cough. No abdominal pain. No nausea or vomiting. PHYSICAL EXAMINATION: Blood pressure 124/75 with a pulse of 71, temperature of 100.3. He is 96% on room air. General description is an elderly male lying in bed in no distress. RESPIRATORY SYSTEM: Unlabored breathing with decreased breath sounds at the base. No wheeze. HEART: S1, S2. Regular rate and rhythm. ABDOMEN: Soft. No tenderness. LABS: Hemoglobin is 10.3, white count 6.2, creatinine 0.78. UTI with Gram-negative. DIAGNOSTIC IMPRESSION AND PLAN: Patient with a fever. Source is likely complicated urinary tract infection. CT shows a large left-sided kidney stone but did not mention any hydronephrosis. Antibiotic has been broadened to Zosyn while waiting for the ID and sensitivity of this pathogen in view of the persistent fever. Monitor his clinical course closely. MMODL / IJN: [id number] / AIXA
[2020-02-15] MEDS: PIPERACILLIN-TAZOBACTAM 3.375 GM in SODIUM CHLORIDE 0.9% 100 ML IVPB SCH ×2 (00:21→07:56)
[2020-02-15 05:24] VITALS: BP 158/92; PULSE 71; TEMP 99.3
[2020-02-15] MEDS: LEVOTHYROXINE 25 MCG TAB PO SCH (06:01)
[2020-02-15 07:43] LABS: Glucose,Whole Blood 171 mg/dL (75-99)
[2020-02-15] MEDS: METOPROLOL SUCCINATE (ER) 50 MG TAB.ER.24H PO SCH (07:55)
[2020-02-15] MEDS: risperiDONE 1 MG TAB PO SCH (07:55)
[2020-02-15] MEDS: INSULIN ASPART (NovoLOG) 100 UNIT/ML VIAL SQ SCH ×2 (07:56→12:43)
[2020-02-15] MEDS: LISINOPRIL 20 MG TAB PO SCH (07:56)
[2020-02-15] MEDS: PANTOPRAZOLE 40 MG/10 ML VIAL IV SCH (07:56)
[2020-02-15] MEDS: DIVALPROEX SPRINKLE 125 MG CAP.SPRINK PO SCH (07:56)
[2020-02-15] MEDS: BENZTROPINE MESYLATE 1 MG TAB PO SCH (07:57)
[2020-02-15] MEDS: NYSTATIN 100,000UNIT/GM CREAM 30 GM TUBE TOPICAL SCH (07:59)
[2020-02-15] MEDS: ACETAMINOPHEN TAB 325 MG TAB PO PRN (10:23)
[2020-02-15 12:07] LABS: Glucose,Whole Blood 173 mg/dL (75-99)
--- NOTE | 2020-02-15 12:07 | P.DS ---
Providers Date of admission: 02/14/20 10:23 Expected date of discharge: 02/15/20 Attending physician: Sepideh Mccarthy Consults: 02/13/20 09:04 Consult Physician Urgent Consulting Provider: Ann Burleson Consult Reason/Comments: UTI/sepsis/ elevated lactic acid Do you want consulting provider notified?: Yes Primary care physician: Blas Rogers [facility] Course: Final diagnosis -severe sepsis: Secondary to urinary tract infection -Possible metabolic encephalopathy due to urinary tract infection, sepsis, present on admission -Altered mental status secondary to above -hypertension -hyperlipidemia -Seizure disorder -Hypothyroidism -Sleep apnea , chronic use of CPAP machine -schizophrenia Discharge disposition Patient is being discharged in a stable condition with guarded prognosis to [facility]. Patient will follow-up with Dr. Rogers upon discharge. Patient will need to follow-up with urology in the outpatient setting upon discharge. Patient will continue with a short course of oral antibiotics in the form of Levaquin 500 mg once daily for the next 5 days and then may discontinue. Total time taken is 35 minutes. History of present illness This is an 69-year-old male who was recently admitted with dysuria along with some confusion and altered mental status with sepsis due to urinary tract infection, present on admission and was being closely monitored. Infectious disease was following. Patient was treated with antibiotics in the form of IV Zosyn and will be transitioned oral Levaquin 500 mg daily for the next 5 days and then may discontinue. Patient underwent an ultrasound of the abdomen which showed a kidney stone in the left side with no signs of hydronephrosis and patient will need to follow-up with urology in the outpatient setting. Patient's urine culture finalized showing Proteus mirabilis. Patient's mentation did improve during hospitalization back to baseline. Patient does have a history of schizophrenia and takes multiple psychotropic medications. During hospitalization patient continued to have some low-grade fevers and will need to be monitored in the outpatient setting and treated with Tylenol accordingly. Currently no reports of chest pain, shortness of breath, or palpitations. Patient is afebrile. No reports of nausea or vomiting and patient is tolerating diet. Guarded prognosis. On exam vital signs are stable. Temp is 99 F, pulse is 71, respirations are 32, blood pressure is 158/92, oxygen saturation is 94 % on room air. Cardio S1, S2 are muffled. Respiratory shows diminished breath sounds at the bases with no wheezing or rhonchi noted. Abdomen is soft, obese, and nontender. Nervous system shows no new focal deficits with continued right-sided weakness that is chronic. Please refer to medication reconciliation sheet for a list of medications. Patient Condition at Discharge: Stable Plan - Discharge Summary Discharge Rx Participant: No New Discharge Prescriptions: New Levofloxacin [Levaquin] 500 mg PO DAILY #5 tab INSULIN ASPART (NovoLOG) [NovoLOG (formulary)] 0 unit SQ ACHS vial Continue Benztropine Mesylate 1 mg PO DAILY Levothyroxine Sodium [Synthroid] 25 mcg PO DAILY Lisinopril [Zestril] 20 mg PO BID Metoprolol Succinate (ER) [Toprol XL] 50 mg PO DAILY Melatonin 3 mg PO HS Lactulose 20 gm PO DAILY Atorvastatin [Lipitor] 20 mg PO HS Potassium Chloride 8 meq PO BID Loratadine 10 mg PO DAILY PRN PRN Reason: Itching Aspirin [Children's Aspirin] 81 mg PO HS Acetaminophen Tab [Tylenol] 650 mg PO Q4H PRN MDD 4000 mg PRN Reason: Fever And/ Or Pain Cholecalciferol [Vitamin D3 (25 Mcg = 1000 Iu)] 1,000 unit PO HS Polyethylene Glycol 3350 [Miralax] 17 gm PO HS Benztropine Mesylate [Cogentin] 2 mg PO HS Ammonium Lactate Lotion [Lac-Hydrin 12% Lotion] 1 applic TOPICAL QID PRN PRN Reason: PRURITIS Divalproex Sodium [Depakote] 375 mg PO Q12H Furosemide [Lasix] 60 mg PO DAILY Gabapentin [Neurontin] 300 mg PO HS metFORMIN HCL 1,000 mg PO BID Multivit-Min/FA/Lycopen/Lutein [Centrum Silver Tablet] 1 tab PO HS Nystatin 100,000Unit/gm Cream [Mycostatin Cream] 1 applic TOPICAL BID risperiDONE 3 mg PO BID Triamcinolone 0.1% Ointment [Kenalog] 1 applic TOPICAL TID PRN PRN Reason: PSORIASIS LORazepam [Ativan] 0.5 mg PO HS #2 tab HYDROcodone/APAP 5-325MG [Woodruff 5-325] 1 tab PO TID #3 tab Discharge Medication List Benztropine Mesylate 1 mg PO DAILY 12/15/15 [History] Levothyroxine Sodium [Synthroid] 25 mcg PO DAILY 12/15/15 [History] Lisinopril [Zestril] 20 mg PO BID 12/15/15 [History] Acetaminophen Tab [Tylenol] 650 mg PO Q4H PRN MDD 4000 mg 01/10/18 [History] Aspirin [Children's Aspirin] 81 mg PO HS 01/10/18 [History] Atorvastatin [Lipitor] 20 mg PO HS 01/10/18 [History] Benztropine Mesylate [Cogentin] 2 mg PO HS 01/10/18 [History] Cholecalciferol [Vitamin D3 (25 Mcg = 1000 Iu)] 1,000 unit PO HS 01/10/18 [History] Lactulose 20 gm PO DAILY 01/10/18 [History] Loratadine 10 mg PO DAILY PRN 01/10/18 [History] Melatonin 3 mg PO HS 01/10/18 [History] Metoprolol Succinate (ER) [Toprol XL] 50 mg PO DAILY 01/10/18 [History] Polyethylene Glycol 3350 [Miralax] 17 gm PO HS 01/10/18 [History] Potassium Chloride 8 meq PO BID 01/10/18 [History] Ammonium Lactate Lotion [Lac-Hydrin 12% Lotion] 1 applic TOPICAL QID PRN 02/13/20 [History] Divalproex Sodium [Depakote] 375 mg PO Q12H 02/13/20 [History] Furosemide [Lasix] 60 mg PO DAILY 02/13/20 [History] Gabapentin [Neurontin] 300 mg PO HS 02/13/20 [History] Multivit-Min/FA/Lycopen/Lutein [Centrum Silver Tablet] 1 tab PO HS 02/13/20 [History] Nystatin 100,000Unit/gm Cream [Mycostatin Cream] 1 applic TOPICAL BID 02/13/20 [History] Triamcinolone 0.1% Ointment [Kenalog] 1 applic TOPICAL TID PRN 02/13/20 [History] metFORMIN HCL 1,000 mg PO BID 02/13/20 [History] risperiDONE 3 mg PO BID 02/13/20 [History] HYDROcodone/APAP 5-325MG [Woodruff 5-325] 1 tab PO TID #3 tab 02/15/20 [Rx] INSULIN ASPART (NovoLOG) [NovoLOG (formulary)] 0 unit SQ ACHS vial 02/15/20 [Rx] LORazepam [Ativan] 0.5 mg PO HS #2 tab 02/15/20 [Rx] Levofloxacin [Levaquin] 500 mg PO DAILY #5 tab 02/15/20 [Rx] Follow up Appointment(s)/Referral(s): Blas Rogers MD [Primary Care Provider] - 1-2 days Andrei Singer MD [STAFF PHYSICIAN] - 2 Weeks Activity/Diet/Wound Care/Special Instructions: Patient is going to [facility] Continue current diet Continue with antibiotics for 5 days and then may discontinue Continue monitoring blood sugars before meals and at bedtime and treat accordingly with sliding scale Continue to monitor for fever or temp and treat with Tylenol Follow-up with urology in the outpatient setting Follow-up with primary care provider upon discharge Activity as tolerated Discharge Disposition: TRANSFER TO SNF/ECF
--- NOTE | 2020-02-15 15:49 | P.PN ---
Progress Note - Text Progress Note Date: 02/15/20 REASON FOR FOLLOWUP: Complicated urinary tract infection. INTERVAL HISTORY: The patient is afebrile, last fever was 100.8 F last night. The patient is more awake and alert he is breathing comfortably denies any chest pain cough no vomiting no diarrhea PHYSICAL EXAMINATION: Blood pressure 158/92 with a pulse of 71, T-max of 100.8 F. He is 96% on room air. General description is an elderly male lying in bed in no distress. RESPIRATORY SYSTEM: Unlabored breathing with decreased breath sounds at the base. No wheeze. HEART: S1, S2. Regular rate and rhythm. ABDOMEN: Soft. No tenderness. LABS: Urine has been finalized as Proteus mirabilis sensitive to Zosyn and Rocephin DIAGNOSTIC IMPRESSION AND PLAN: Patient with a fever. Source is likely complicated urinary tract infection. CT shows a large left-sided kidney stone but did not mention any hydronephrosis. Patient is currently covered with Zosyn finishing therapy with oral antibiotics will wait for to make sure the patient is afebrile for this 24-hour before discharge
[2020-02-16] MEDS ORDERED: PANTOPRAZOLE 40 MG TABLET PO SCH (07:30)
== END 2020-02-15 15:36 | DRG 871 ==
LOC: EC 03:11 → 6NMEDSUR 04:32 → OBSVTOIN 02-14 10:23
PROVIDERS: ADMIT Hospitalist; ATTEND Hospitalist
DX: A41.9 Sepsis, unspecified organism (principal); G93.41 Metabolic encephalopathy; E87.2 Acidosis; I69.354 Hemiplegia and hemiparesis following cerebral infarction affecting left non-dominant side; N39.0 Urinary tract infection, site not specified; Z68.41 Body mass index [BMI] 40.0-44.9, adult; E66.9 Obesity, unspecified; K76.0 Fatty (change of) liver, not elsewhere classified; R65.20 Severe sepsis without septic shock; E11.9 Type 2 diabetes mellitus without complications; I10 Essential (primary) hypertension; E78.5 Hyperlipidemia, unspecified; G47.33 Obstructive sleep apnea (adult) (pediatric); G40.909 Epilepsy, unspecified, not intractable, without status epilepticus; E03.9 Hypothyroidism, unspecified; N28.1 Cyst of kidney, acquired; N20.0 Calculus of kidney; F20.9 Schizophrenia, unspecified; M54.9 Dorsalgia, unspecified; L40.9 Psoriasis, unspecified; Z79.82 Long term (current) use of aspirin; Z79.890 Hormone replacement therapy; Z79.84 Long term (current) use of oral hypoglycemic drugs; Z79.899 Other long term (current) drug therapy; Z87.891 Personal history of nicotine dependence; Z99.89 Dependence on other enabling machines and devices; Z98.890 Other specified postprocedural states; Z88.8 Allergy status to other drugs, medicaments and biological substances
CPT/HCPCS: 36415; 70450; 71045; 74176; 76700; 80048; 80053; 81001; 83605; 84075; 84450; 84460; 85025; 85027; 85610; 85730; 87040; 87077; 87086; 87186; 87502; 87634; 93005; 96361; 96374; 99285